=== PATIENT | female | born 1960 | race Caucasian/White ===

== ENCOUNTER → 2016-08-24 | Outpatient (CLI) | payer BC, OTHER ==
[2016-08-24 10:56] LABS: CHLORIDE,CL 100 mmol/L (98-110); SODIUM,NA 140 mmol/L (136-146)
== END ==
LOC: MW.CHFP 10:00
PROVIDERS: ATTEND Emergency Medicine
DX: I10 Essential (primary) hypertension (principal); R73.03 Prediabetes
CPT/HCPCS: 36415; 80053; 80061; 83036

== ENCOUNTER 2018-07-22 07:47 | Day surgery (SDC) | payer BC ==
[2018-07-22] MEDS ORDERED: Clindamycin Phosphate in D5W 600 MG in Premix Bag 1 BAG IV ONE ×2 (08:00)
[2018-07-22] MEDS ORDERED: Lactated Ringers 1,000 ML IV SCH (08:00)
[2018-07-22] MEDS ORDERED: Bupivacaine 0.25%/EPINEPHrine 1:200,000 10 ML SDV INJECT ONE (08:00)
--- NOTE | 2018-07-22 08:28 | PCM.PREANE ---
Preanesthetic Assessment - Anesthesia/Transfusion/Family Hx Anesthesia History: Prior Anesthesia Without Reaction Family History of Anesthesia Reaction: No Transfusion History: Prior Transfusion Without Reaction - Review of Systems General: No Symptoms Pulmonary: No Symptoms Cardiovascular: No Symptoms Gastrointestinal: No Symptoms Neurological: No Symptoms Other: Reports: None - Physical Assessment NPO Status Date: 07/21/18 O2 Sat by Pulse Oximetry: 97 Respiratory Rate: 16 Vital Signs: Last Vital Signs Temp 97.2 F 07/22/18 08:13 Pulse 75 07/22/18 08:13 Resp 16 07/22/18 08:13 BP 127/75 07/22/18 08:13 Pulse Ox 97 07/22/18 08:13 Height: 5 ft 5 in Weight: 65.317 kg ASA Class: 2 Mental Status: Alert & Oriented x3 Airway Class: Mallampati = 2 Dentition: Reports: Normal Dentition ROM/Head Extension: Full Lungs: Clear to Auscultation, Normal Respiratory Effort Cardiovascular: Regular Rate, Regular Rhythm - Allergies Allergies/Adverse Reactions: Allergies Allergy/AdvReac Type Severity Reaction Status Date / Time Penicillins Allergy Chest Pain Verified 07/19/18 11:35 - Blood Blood Available: No - Anesthesia Plan Pre-Op Medication Ordered: None - Acknowledgements Anesthesia Type Planned: MAC Pt an Appropriate Candidate for the Planned Anesthesia: Yes Alternatives and Risks of Anesthesia Discussed w Pt/Guardian: Yes Pt/Guardian Understands and Agrees with Anesthesia Plan: Yes Additional Comments: PMH: anx/dep, ptsd. 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: Musculoskeletal History: Reports: None Neurological History: Reports: Migraines, Other (See Below) Other Neuro History: hx of motion sickness, hx of migraines in the past- not recently Psychiatric History: Reports: Autism, Depression Endocrine/Metabolic History: Reports: Diabetes, Type II Hematologic History: Reports: Blood Transfusion(s) Immunologic History: Reports: None Oncologic (Cancer) History: Reports: None Dermatologic History: Reports: None - Past Surgical History Head Surgeries/Procedures: Reports: None HEENT Surgical History: Reports: None Cardiovascular Surgical History: Reports: None Respiratory Surgical History: Reports: None GI Surgical History: Reports: None Female Surgical History: Reports: Hysterectomy Endocrine Surgical History: Reports: None Neurological Surgical History: Reports: Laminectomy Musculoskeletal Surgical History: Reports: Arthroscopic Knee Other Musculoskeletal Surgeries/Procedures:: right knee minscus repair, right bunon surgery Oncologic Surgical History: Reports: None Dermatological Surgical History: Reports: None - SUBSTANCE USE Smoking Status *Q: Never Smoker Recreational Drug Use History: No - HOME MEDS Home Medications: Home Meds Ramipril [Altace] 10 mg PO DAILY 11/01/13 [History] hydroCHLOROthiazide [Hydrochlorothiazide] 12.5 mg PO DAILY 11/01/13 [History] Pantoprazole Sodium 40 mg PO DAILY 05/24/14 [History] metFORMIN [Glucophage XR] 500 mg PO BID 12/12/17 [History] Sertraline [Zoloft] 50 mg PO DAILY 07/19/18 [History] - CURRENT (IN HOUSE) MEDS Current Meds: Current Medications Lactated Ringer's (Ringers, Lactated) 1,000 mls @ 125 mls/hr IV ASDIRECTED VANESSA Last Admin: 07/22/18 08:18 Dose: 125 mls/hr Discontinued Medications Bupivacaine HCl/Epinephrine Bitart (Marcaine 0.25%/Epinephrine 1:200,000) 10 ml INJECT ONETIME ONE Stop: 07/22/18 08:01 Clindamycin Phosphate 600 mg/ (Premix) 50 mls @ 150 mls/hr IV ONETIME ONE Stop: 07/22/18 08:19
[2018-07-22] MEDS ORDERED: Bupivacaine 0.25%/EPINEPHrine 1:200,000 10 ML SDV ONE (09:13)
[2018-07-22] MEDS ORDERED: Propofol 200 MG/20 ML SDV ONE (09:30)
[2018-07-22] MEDS ORDERED: Lidocaine 2% 5 ML SDV ONE (09:30)
[2018-07-22] MEDS ORDERED: fentaNYL 100 MCG/2 ML SDV ONE (09:30)
[2018-07-22] MEDS ORDERED: Midazolam 1 MG/ML 2 ML SDV ONE (09:31)
[2018-07-22] MEDS ORDERED: Ondansetron 4 MG/2 ML SDV ONE (09:56)
[2018-07-22] MEDS ORDERED: Ketorolac 30 MG/ML SDV ONE (09:56)
[2018-07-22 11:25] VITALS: BP 125/77
--- NOTE | 2018-07-22 13:35 | PCM.POSTAN ---
POST ANESTHESIA ASSESSMENT - MENTAL STATUS Mental Status: Alert, Oriented - RESPIRATORY Respiratory Status: Respiratory Rate WNL, Airway Patent, O2 Saturation Stable - CARDIOVASCULAR CV Status: Pulse Rate WNL, Blood Pressure Stable - GASTROINTESTINAL GI Status: No Symptoms - POST OP HYDRATION Hydration Status: Adequate & Stable
--- NOTE | 2018-07-22 13:35 | PCM48HPAN ---
Post Anesthesia Note - EVALUATION WITHIN 48HRS OF ANESTHETIC Vital Signs in Normal Range: Yes Patient Participated in Evaluation: Yes Respiratory Function Stable: Yes Airway Patent: Yes Cardiovascular Function Stable: Yes Hydration Status Stable: Yes Pain Control Satisfactory: Yes Nausea and Vomiting Control Satisfactory: Yes Mental Status Recovered: Yes Resp Rate: 16
--- NOTE | 2018-07-23 06:33 | PCM.OPNOTE ---
- General Post-Op/Procedure Note Date of Surgery/Procedure: 07/22/18 Operative Procedure(s): excision of left volar wrist ganglion Pre Op Diagnosis: left volar wrist ganglion Post-Op Diagnosis: Same Anesthesia Technique: Local, MAC Primary Surgeon: Flaquita Arroyo Keypunch Operator: Jelly Russell Complications: None Condition: Good
--- NOTE | 2018-07-24 20:17 | OR ---
SURGEON: JANIS BAUMANN MD DATE OF PROCEDURE: 07/22/2018 PREOPERATIVE DIAGNOSIS: Left volar wrist ganglion. POSTOPERATIVE DIAGNOSIS: Left volar wrist ganglion. PROCEDURE: Excision of left volar wrist ganglion. DETENTION WORKER: LYNDSEY Piedra REASON FOR AND ROLE OF DETENTION WORKER: Retraction, prepping, draping, positioning and closure assistance. ANESTHESIA: Local MAC. INDICATIONS: Ms. Rogers is a 58-year-old female seen today in evaluation for left volar wrist ganglion. It does come and go, and it is currently today somewhat deflated. Risks and benefits of release were discussed, and she was in agreement to proceed. Risks were including but not limited to bleeding, infection, damage to underlying or overlying structures, possible need for future interventions, or possible scarring. PROCEDURE DETAILS: After informed consent was obtained and placed on the chart, the patient was brought to the operating theater and laid in supine position. After adequate MAC anesthesia was obtained, the area was prepped and draped, and a time-out was completed to confirm side and site. A 0.25% Marcaine with epinephrine was infiltrated into the area, and after adequate time for setting, the arm was exsanguinated and the tourniquet was insufflated to 200 mmHg. A longitudinal incision was made over the volar wrist ganglion, and dissection was carried circumferentially around it. It does appear to be coming from the flexor carpi radialis tendon itself. This was removed and sent for pathology. Cautery was used to cauterize the small hole appreciated in the area around the joint where the fcr passes. The small possible joint communication was closed using a 4-0 Monocryl stitch in a [id number] fashion. Meticulous hemostasis was obtained, and the tourniquet was desufflated at the end of the case. A running 4-0 Monocryl was used to close the skin. Once adequately closed, the wound was dressed with Steri-Strips, fluffs, and a short-arm thumb spica splint. The patient tolerated this well. All counts and needles were correct at the end of the case. The patient will see us in 2 weeks, sooner with any issues or concerns. HEGGTMASHA / XIN /[id number] [facility]
== END 2018-07-22 11:36 | disposition home or self-care (01) ==
LOC: MW.SDS 07:47
PROVIDERS: ATTEND Plastic Surgery
DX: M67.432 Ganglion, left wrist (principal); I10 Essential (primary) hypertension; E11.9 Type 2 diabetes mellitus without complications; E04.2 Nontoxic multinodular goiter; K21.9 Gastro-esophageal reflux disease without esophagitis; F32.9 Major depressive disorder, single episode, unspecified; F41.9 Anxiety disorder, unspecified; M17.11 Unilateral primary osteoarthritis, right knee; M70.31 Other bursitis of elbow, right elbow; Z88.0 Allergy status to penicillin; Z79.84 Long term (current) use of oral hypoglycemic drugs; Z79.899 Other long term (current) drug therapy
CPT/HCPCS: 25111; J1885; J2001; J2250; J2405; J2704; J3010; J3490; J7120; 88304

== ENCOUNTER 2019-01-21 14:46 | Inpatient (IN) | payer BC ==
[2019-01-21] MEDS ORDERED: Sodium Chloride 0.9% 1,000 ML IV ONE (14:49)
[2019-01-21] MEDS ORDERED: Midazolam 1 MG/ML 2 ML SDV IVPUSH ONE (15:01)
[2019-01-21] MEDS ORDERED: Morphine 2 MG/ML Syringe IVPUSH ONE (15:01)
[2019-01-21] MEDS ORDERED: Amiodarone In Dextrose,Iso-Osm 150 MG in Premix Bag 1 BAG IV ONE ×2 (15:02)
--- NOTE | 2019-01-21 15:44 | EDM.PDOC ---
ED HPI GENERAL MEDICAL PROBLEM - General Chief Complaint: Chest Pain Stated Complaint: CHEST PAINS Time Seen by Provider: 01/21/19 15:43 Source of Information: Reports: Patient - History of Present Illness INITIAL COMMENTS - FREE TEXT/NARRATIVE: HISTORY AND PHYSICAL: History of present illness: [Patient presents with wide complex tachycardia and mild 2 out of 10 chest pain hemodynamically stable and alert] Review of systems: As per history of present illness and below otherwise all systems reviewed and negative. Past medical history: As per history of present illness and as reviewed below otherwise noncontributory. Surgical history: As per history of present illness and as reviewed below otherwise noncontributory. Social history: No reported history of drug or alcohol abuse. Family history: As per history of present illness and as reviewed below otherwise noncontributory. Physical exam: HEENT: Atraumatic, normocephalic, pupils reactive, negative for conjunctival pallor or scleral icterus, mucous membranes moist, throat clear, neck supple, nontender, trachea midline. Lungs: Clear to auscultation, breath sounds equal bilaterally, chest nontender. Heart: S1S2, regular, negative for clicks, rubs, or JVD. Abdomen: Soft, nondistended, nontender. Negative for masses or hepatosplenomegaly. Negative for costovertebral tenderness. Pelvis: Stable nontender. Genitourinary: Deferred. Rectal: Deferred. Extremities: Atraumatic, negative for cords or calf pain. Neurovascular unremarkable. Neuro: Awake, alert, oriented. Cranial nerves II through XII unremarkable. Cerebellum unremarkable. Motor and sensory unremarkable throughout. Exam nonfocal. Diagnostics: [CBC CMP troponin UA drug screen EKG with repeat Post cardioversion Chest 1 view ] Therapeutics: [ amiodarone 150 mg IV cardioversion 100 J with conversion Morphine 2 mg IV Versed 2 mg IV Potassium 40 mEq IV K-Dur 20 milliequivalents by mouth ] Impression: Hypovolemia/dehydration Hypokalemia [ complex tachycardia ]resolved Definitive disposition and diagnosis as appropriate pending reevaluation and review of above. Chest Pain Score (Numeric/FACES): 7 - Related Data Allergies Allergy/AdvReac Type Severity Reaction Status Date / Time Penicillins Allergy Chest Pain Verified 01/21/19 14:51 Home Meds: Home Meds Ramipril [Altace] 10 mg PO DAILY 11/01/13 [History] hydroCHLOROthiazide [Hydrochlorothiazide] 12.5 mg PO DAILY 11/01/13 [History] Pantoprazole Sodium 40 mg PO DAILY 05/24/14 [History] metFORMIN [Glucophage XR] 500 mg PO BID 12/12/17 [History] Sertraline [Zoloft] 50 mg PO DAILY 07/19/18 [History] Past Medical History HEENT History: Reports: Other (See Below) Other HEENT History: wears glasses Cardiovascular History: Reports: Hypertension Respiratory History: Reports: None Gastrointestinal History: Reports: GERD Genitourinary History: Reports: None 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: Musculoskeletal History: Reports: None Neurological History: Reports: Migraines, Other (See Below) Other Neuro History: hx of motion sickness, hx of migraines in the past- not recently Psychiatric History: Reports: Autism, Depression Endocrine/Metabolic History: Reports: Diabetes, Type II Hematologic History: Reports: Blood Transfusion(s) Immunologic History: Reports: None Oncologic (Cancer) History: Reports: None Dermatologic History: Reports: None - Infectious Disease History Infectious Disease History: Reports: Chicken Pox, Measles - Past Surgical History Head Surgeries/Procedures: Reports: None HEENT Surgical History: Reports: None Cardiovascular Surgical History: Reports: None Respiratory Surgical History: Reports: None GI Surgical History: Reports: None Female Surgical History: Reports: Hysterectomy Endocrine Surgical History: Reports: None, Thyroid Biopsy Neurological Surgical History: Reports: Laminectomy Musculoskeletal Surgical History: Reports: Arthroscopic Knee Other Musculoskeletal Surgeries/Procedures:: right knee minscus repair, right bunon surgery Oncologic Surgical History: Reports: None Dermatological Surgical History: Reports: None Social & Family History - Family History Family Medical History: Noncontributory - Tobacco Use Smoking Status *Q: Never Smoker - Caffeine Use Caffeine Use: Reports: Coffee - Recreational Drug Use Recreational Drug Use: No ED ROS GENERAL - Review of Systems Review Of Systems: See Below ED EXAM, GENERAL - Physical Exam Exam: See Below Course - Vital Signs Last Recorded V/S: Last Vital Signs Temp 96.4 F 01/21/19 14:52 Pulse 104 H 01/21/19 15:56 Resp 17 01/21/19 15:56 BP 124/80 01/21/19 15:56 Pulse Ox 96 01/21/19 15:56 - Orders/Labs/Meds Orders: Active Orders 24 hr Category Date Time Status EKG 12 Lead [EKG Documentation Completion] [RC] STAT Care 01/21/19 15:21 Active EKG Documentation Completion [RC] STAT Care 01/21/19 14:49 Active UA RFX ABELARDO AND CULT IF INDIC [URIN] Stat Lab 01/21/19 16:09 Received Potassium Chloride Riders [KCL 40 MEQ in Water 100 ML] Med 01/21/19 16:03 Active 40 meq Premix Bag 1 bag IV ONETIME Sodium Chloride 0.9% [Normal Saline] 1,000 ml Med 01/21/19 16:15 Active IV STAT Medication Orders Potassium Chloride 40 meq/ (Premix) 100 mls @ 25 mls/hr IV ONETIME ONE Stop: 01/21/19 20:02 Last Admin: 01/21/19 16:27 Dose: 25 mls/hr Sodium Chloride (Normal Saline) 1,000 mls @ 125 mls/hr IV STAT VANESSA Last Admin: 01/21/19 16:27 Dose: 125 mls/hr Labs: Laboratory Tests 01/21/19 01/21/19 01/21/19 Range/Units 14:54 14:54 14:54 WBC 15.01 H (4.0-11.0) K/uL RBC 4.68 (4.30-5.90) M/uL Hgb 15.0 (12.0-16.0) g/dL Hct 45.3 (36.0-46.0) % MCV 96.8 (80.0-98.0) fL MCH 32.1 H (27.0-32.0) pg MCHC 33.1 (31.0-37.0) g/dL RDW Std Deviation 45.8 (28.0-62.0) fl RDW Coeff of Anders 13 (11.0-15.0) % Plt Count 402 H (150-400) K/uL MPV 10.20 (7.40-12.00) fL Neut % (Auto) 62.0 (48.0-80.0) % Lymph % (Auto) 27.3 (16.0-40.0) % [place] % (Auto) 8.2 (0.0-15.0) % Eos % (Auto) 2.2 (0.0-7.0) % Baso % (Auto) 0.3 (0.0-1.5) % Neut # (Auto) 9.3 H (1.4-5.7) K/uL Lymph # (Auto) 4.1 H (0.6-2.4) K/uL [place] # (Auto) 1.2 H (0.0-0.8) K/uL Eos # (Auto) 0.3 (0.0-0.7) K/uL Baso # (Auto) 0.0 (0.0-0.1) K/uL Nucleated RBC % 0.0 /100WBC Nucleated RBCs # 0 K/uL D-Dimer, Quantitative 0.30 (0.0-0.50) mg/L FEU Sodium 140 (136-145) mmol/L Potassium 2.9 L (3.5-5.1) mmol/L Chloride 99 (98-107) mmol/L Carbon Dioxide 26.6 (21.0-32.0) mmol/L BUN 18 (7.0-18.0) mg/dL Creatinine 1.2 H (0.6-1.0) mg/dL Est Cr Clr Drug Dosing 45.42 mL/min Estimated GFR (MDRD) 46.0 ml/min Glucose 124 H (74-106) mg/dL Calcium 10.2 H (8.5-10.1) mg/dL Total Bilirubin 0.5 (0.2-1.0) mg/dL AST 16 (15-37) IU/L ALT 16 (14-63) IU/L Alkaline Phosphatase 94 (46-116) U/L Troponin I < 0.050 (0.000-0.056) ng/mL Total Protein 8.6 H (6.4-8.2) g/dL Albumin 4.4 (3.4-5.0) g/dL Globulin 4.2 H (2.6-4.0) g/dL Albumin/Globulin Ratio 1.1 (0.9-1.6) Lipase 338 (73-393) U/L Meds: Medications Generic Name Dose Route Start Last Admin Trade Name Freq PRN Reason Stop Dose Admin Potassium Chloride 40 meq/ 100 mls @ 25 mls/hr 01/21/19 16:03 01/21/19 16:27 Premix IV 01/21/19 20:02 25 mls/hr ONETIME ONE Administration Sodium Chloride 1,000 mls @ 125 mls/hr 01/21/19 16:15 01/21/19 16:27 Normal Saline IV 125 mls/hr STAT VANESSA Administration Discontinued Medications Generic Name Dose Route Start Last Admin Trade Name Zakiya PRN Reason Stop Dose Admin Sodium Chloride 1,000 mls @ 999 mls/hr 01/21/19 14:49 01/21/19 15:05 Normal Saline IV 01/21/19 15:49 999 mls/hr STAT ONE Administration Amiodarone HCl/Dextrose Confirm 01/21/19 14:57 01/21/19 15:06 Nexterone In Dextrose 150 Mg/100 Ml Administered 01/21/19 14:58 Not Given Dose 100 mls @ as directed IV .STK-MED ONE Amiodarone HCl/Dextrose 150 mg 100 mls @ 400 mls/hr 01/21/19 15:02 01/21/19 15:05 / Premix IV 01/21/19 15:16 400 mls/hr NOW ONE Administration Protocol Midazolam HCl 2 mg 01/21/19 15:01 01/21/19 15:15 Versed 1 Mg/Ml IVPUSH 01/21/19 15:02 2 mg ONETIME ONE Administration Morphine Sulfate 2 mg 01/21/19 15:01 01/21/19 15:05 Morphine IVPUSH 01/21/19 15:02 2 mg ONETIME ONE Administration Potassium Chloride 20 meq 01/21/19 16:03 01/21/19 16:11 Klor-Con M20 PO 01/21/19 16:04 20 meq ONETIME ONE Administration Departure - Departure Time of Disposition: 17:30 Disposition: Refer to Observation Condition: Fair Clinical Impression: Wide-complex tachycardia, Dehydration, Hypokalemia - Discharge Information Referrals: PCP,None [Primary Care Provider] - Forms: ED Department Discharge - My Orders Last 24 Hours: My Active Orders 01/21/19 14:49 EKG Documentation Completion [RC] STAT 01/21/19 15:21 EKG 12 Lead [EKG Documentation Completion] [RC] STAT 01/21/19 16:03 Potassium Chloride Riders [KCL 40 MEQ in Water 100 ML] 40 meq Premix Bag 1 bag IV ONETIME 01/21/19 16:09 UA RFX ABELARDO AND CULT IF INDIC [URIN] Stat 01/21/19 16:15 Sodium Chloride 0.9% [Normal Saline] 1,000 ml IV STAT - Assessment/Plan Last 24 Hours: My Active Orders 01/21/19 14:49 EKG Documentation Completion [RC] STAT 01/21/19 15:21 EKG 12 Lead [EKG Documentation Completion] [RC] STAT 01/21/19 16:03 Potassium Chloride Riders [KCL 40 MEQ in Water 100 ML] 40 meq Premix Bag 1 bag IV ONETIME 01/21/19 16:09 UA RFX ABELARDO AND CULT IF INDIC [URIN] Stat 01/21/19 16:15 Sodium Chloride 0.9% [Normal Saline] 1,000 ml IV STAT
[2019-01-21 15:46] LABS: BLOOD UREA NITROGEN,BUN 18 mg/dL (7.0-18.0); CARBON DIOXIDE,CO2 26.6 mmol/L (21.0-32.0); CHLORIDE,CL 99 mmol/L (98-107); GLUCOSE RANDOM 124 mg/dL (74-106); LIPASE 338 U/L (73-393); POTASSIUM,K 2.9 mmol/L (3.5-5.1); SODIUM,NA 140 mmol/L (136-145)
--- NOTE | 2019-01-21 15:56 | CR ---
INDICATION: Chest pain; High blood pressure TECHNIQUE: Chest 1 view. COMPARISON: 02/11/12 FINDINGS: Cardiovascular and mediastinum: Heart size and vasculature are normal in caliber and appearance. Mediastinum is within normal limits. Lungs and pleural space: Lungs are clear. No sign of infiltrate or mass. No sign of pleural effusion. No pneumothorax. Bones and soft tissues: No significant findings. IMPRESSION: Unremarkable chest. Dictated by: Adan Leahy MD @ 01/21/2019 15:54:58 (Electronically Signed)
[2019-01-21] MEDS ORDERED: Potassium Chloride 20 MEQ Tab.ER PO ONE (16:03)
[2019-01-21] MEDS ORDERED: Potassium Chloride Riders 40 MEQ in Premix Bag 1 BAG IV ONE (16:03)
[2019-01-21] MEDS ORDERED: Sodium Chloride 0.9% 1,000 ML IV SCH ×2 (16:15→17:45)
[2019-01-21] MEDS ORDERED: Acetaminophen 325 MG Tab PO PRN (17:43)
[2019-01-21] MEDS ORDERED: Temazepam 15 MG Cap PO PRN (17:43)
[2019-01-21] MEDS ORDERED: oxyCODONE 5 MG Tab PO PRN (17:43)
[2019-01-21] MEDS ORDERED: Docusate Sodium 100 MG Cap PO PRN (17:43)
--- NOTE | 2019-01-21 18:00 | PCM.HP.2 ---
H&P History of Present Illness - General Date of Service: 01/21/19 Admit Problem/Dx: Admission Diagnosis/Problem Admission Diagnosis/Problem Wide-complex tachycardia Source of Information: Patient History Limitations: Reports: No Limitations - History of Present Illness Initial Comments - Free Text/Narative: The patient is an otherwise healthy 58-year-old lady who had presented to the emergency department with a complaint of chest pain, dizziness and lightheadedness along with shortness of breath. The patient had an EKG obtained which showed extreme tachycardia with wide complex with a ventricular rate of 202 bpm. The patient had been cardioverted in the emergency room with 100 J of electrical energy and she had been started on amiodarone. The patient has denied any previous episode. She has been taking medication for hypertension and well controlled diabetes. The patient reports that she was moving lightweight furniture when she started to get dizzy and lightheaded and she felt that her heart was coming out of her chest. The patient said that she had bandlike pain going from her right shoulder to her left lower chest area. The patient does feel better currently and is having no pain. Postconversion the patient's EKG shows sinus tachycardia with a ventricular rate of 102 bpm. Onset of Symptoms: Reports: Sudden Duration of Symptoms: Reports: Hour(s):, Improving Location: Reports: Chest Quality: Reports: Dull, Pressure Severity: Moderate Improves with: Reports: Other (Cardioversion) Worsens with: Reports: None Associated Symptoms: Reports: Diaphoresis, Shortness of Breath Chest Pain Score (Numeric/FACES): 7 - Related Data Allergies/Adverse Reactions: Allergies Allergy/AdvReac Type Severity Reaction Status Date / Time Penicillins Allergy Chest Pain Verified 01/21/19 14:51 Home Medications: Home Meds Ramipril [Altace] 10 mg PO DAILY 11/01/13 [History] hydroCHLOROthiazide [Hydrochlorothiazide] 12.5 mg PO DAILY 11/01/13 [History] Pantoprazole Sodium 40 mg PO DAILY 05/24/14 [History] metFORMIN [Glucophage XR] 500 mg PO BID 12/12/17 [History] Sertraline [Zoloft] 50 mg PO DAILY 07/19/18 [History] Past Medical History HEENT History: Reports: Other (See Below) Other HEENT History: wears glasses Cardiovascular History: Reports: Hypertension Respiratory History: Reports: None Gastrointestinal History: Reports: GERD Genitourinary History: Reports: None 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: Musculoskeletal History: Reports: None Neurological History: Reports: Migraines, Other (See Below) Other Neuro History: hx of motion sickness, hx of migraines in the past- not recently Psychiatric History: Reports: Autism, Depression Endocrine/Metabolic History: Reports: Diabetes, Type II Hematologic History: Reports: Blood Transfusion(s) Immunologic History: Reports: None Oncologic (Cancer) History: Reports: None Dermatologic History: Reports: None - Infectious Disease History Infectious Disease History: Reports: Chicken Pox, Measles - Past Surgical History Head Surgeries/Procedures: Reports: None HEENT Surgical History: Reports: None Cardiovascular Surgical History: Reports: None Respiratory Surgical History: Reports: None GI Surgical History: Reports: None Female Surgical History: Reports: Hysterectomy Endocrine Surgical History: Reports: None, Thyroid Biopsy Neurological Surgical History: Reports: Laminectomy Musculoskeletal Surgical History: Reports: Arthroscopic Knee Other Musculoskeletal Surgeries/Procedures:: right knee minscus repair, right bunon surgery Oncologic Surgical History: Reports: None Dermatological Surgical History: Reports: None Social & Family History - Family History Family Medical History: Noncontributory - Tobacco Use Smoking Status *Q: Never Smoker - Caffeine Use Caffeine Use: Reports: Coffee - Recreational Drug Use Recreational Drug Use: No - Living Situation & Occupation Living situation: Reports: , with Spouse Occupation: Retired H&P Review of Systems - Review of Systems: Review Of Systems: See Below General: Reports: Diaphoresis HEENT: Reports: No Symptoms Pulmonary: Reports: Shortness of Breath Cardiovascular: Reports: Chest Pain, Palpitations Gastrointestinal: Reports: No Symptoms Genitourinary: Reports: No Symptoms Musculoskeletal: Reports: No Symptoms Skin: Reports: No Symptoms Psychiatric: Reports: No Symptoms Neurological: Reports: No Symptoms Hematologic/Lymphatic: Reports: No Symptoms Immunologic: Reports: No Symptoms Exam - Exam Exam: See Below - Vital Signs Vital Signs: Last Vital Signs Temp 35.8 C 01/21/19 14:52 Pulse 103 H 01/21/19 17:27 Resp 17 01/21/19 17:27 BP 128/88 01/21/19 17:27 Pulse Ox 97 01/21/19 17:27 Weight: 64.864 kg - Exam Quality Assessment: Supplemental Oxygen General: Alert, Oriented, Cooperative, Mild Distress HEENT: Conjunctiva Clear, EACs Clear, EOMI, Hearing Intact, Pupils Equal, PERRLA. No: Mucosa Moist & [place] (Oropharynx dry) Neck: Supple, Trachea Midline Lungs: Clear to Auscultation, Normal Respiratory Effort Cardiovascular: Regular Rhythm, Tachycardia (100 bpm). No: Systolic Murmur, Diastolic Murmur, Rubs, Gallop/S3, Gallop/S4 GI/Abdominal Exam: Normal Bowel Sounds, Soft, No Distention Back Exam: Normal Inspection, Full Range of Motion Extremities: Normal Inspection, No Pedal Edema Skin: Warm, Dry, Intact Neurological: Cranial Nerves Intact Neuro Extensive - Mental Status: Alert, Oriented x3 Neuro Extensive - Motor, Sensory, Reflexes: CN II-XII Intact Psychiatric: Alert, Normal Affect, Normal Mood - Patient Data Lab Results Last 24 hrs: Laboratory Results - last 24 hr 01/21/19 01/21/19 01/21/19 Range/Units 14:54 14:54 14:54 WBC 15.01 H (4.0-11.0) K/uL RBC 4.68 (4.30-5.90) M/uL Hgb 15.0 (12.0-16.0) g/dL Hct 45.3 (36.0-46.0) % MCV 96.8 (80.0-98.0) fL MCH 32.1 H (27.0-32.0) pg MCHC 33.1 (31.0-37.0) g/dL RDW Std Deviation 45.8 (28.0-62.0) fl RDW Coeff of Anders 13 (11.0-15.0) % Plt Count 402 H (150-400) K/uL MPV 10.20 (7.40-12.00) fL Neut % (Auto) 62.0 (48.0-80.0) % Lymph % (Auto) 27.3 (16.0-40.0) % Perry % (Auto) 8.2 (0.0-15.0) % Eos % (Auto) 2.2 (0.0-7.0) % Baso % (Auto) 0.3 (0.0-1.5) % Neut # (Auto) 9.3 H (1.4-5.7) K/uL Lymph # (Auto) 4.1 H (0.6-2.4) K/uL Perry # (Auto) 1.2 H (0.0-0.8) K/uL Eos # (Auto) 0.3 (0.0-0.7) K/uL Baso # (Auto) 0.0 (0.0-0.1) K/uL Nucleated RBC % 0.0 /100WBC Nucleated RBCs # 0 K/uL D-Dimer, Quantitative 0.30 (0.0-0.50) mg/L FEU Sodium 140 (136-145) mmol/L Potassium 2.9 L (3.5-5.1) mmol/L Chloride 99 (98-107) mmol/L Carbon Dioxide 26.6 (21.0-32.0) mmol/L BUN 18 (7.0-18.0) mg/dL Creatinine 1.2 H (0.6-1.0) mg/dL Est Cr Clr Drug Dosing 45.42 mL/min Estimated GFR (MDRD) 46.0 ml/min Glucose 124 H (74-106) mg/dL Calcium 10.2 H (8.5-10.1) mg/dL Total Bilirubin 0.5 (0.2-1.0) mg/dL AST 16 (15-37) IU/L ALT 16 (14-63) IU/L Alkaline Phosphatase 94 (46-116) U/L Troponin I < 0.050 (0.000-0.056) ng/mL Total Protein 8.6 H (6.4-8.2) g/dL Albumin 4.4 (3.4-5.0) g/dL Globulin 4.2 H (2.6-4.0) g/dL Albumin/Globulin Ratio 1.1 (0.9-1.6) Lipase 338 (73-393) U/L Urine Color Urine Appearance Urine pH (5.0-8.0) Ur Specific [place] (1.001-1.035) Urine Protein (NEGATIVE) mg/dL Urine Glucose (UA) (NEGATIVE) mg/dL Urine Ketones (NEGATIVE) mg/dL Urine Occult Blood (NEGATIVE) Urine Nitrite (NEGATIVE) Urine Bilirubin (NEGATIVE) Urine Urobilinogen (<2.0) EU/dL Ur Leukocyte Esterase (NEGATIVE) 01/21/19 Range/Units 16:09 WBC (4.0-11.0) K/uL RBC (4.30-5.90) M/uL Hgb (12.0-16.0) g/dL Hct (36.0-46.0) % MCV (80.0-98.0) fL MCH (27.0-32.0) pg MCHC (31.0-37.0) g/dL RDW Std Deviation (28.0-62.0) fl RDW Coeff of Anders (11.0-15.0) % Plt Count (150-400) K/uL MPV (7.40-12.00) fL Neut % (Auto) (48.0-80.0) % Lymph % (Auto) (16.0-40.0) % Perry % (Auto) (0.0-15.0) % Eos % (Auto) (0.0-7.0) % Baso % (Auto) (0.0-1.5) % Neut # (Auto) (1.4-5.7) K/uL Lymph # (Auto) (0.6-2.4) K/uL Perry # (Auto) (0.0-0.8) K/uL Eos # (Auto) (0.0-0.7) K/uL Baso # (Auto) (0.0-0.1) K/uL Nucleated RBC % /100WBC Nucleated RBCs # K/uL D-Dimer, Quantitative (0.0-0.50) mg/L FEU Sodium (136-145) mmol/L Potassium (3.5-5.1) mmol/L Chloride (98-107) mmol/L Carbon Dioxide (21.0-32.0) mmol/L BUN (7.0-18.0) mg/dL Creatinine (0.6-1.0) mg/dL Est Cr Clr Drug Dosing mL/min Estimated GFR (MDRD) ml/min Glucose (74-106) mg/dL Calcium (8.5-10.1) mg/dL Total Bilirubin (0.2-1.0) mg/dL AST (15-37) IU/L ALT (14-63) IU/L Alkaline Phosphatase (46-116) U/L Troponin I (0.000-0.056) ng/mL Total Protein (6.4-8.2) g/dL Albumin (3.4-5.0) g/dL Globulin (2.6-4.0) g/dL Albumin/Globulin Ratio (0.9-1.6) Lipase (73-393) U/L Urine Color YELLOW Urine Appearance CLEAR Urine pH 5.0 (5.0-8.0) Ur Specific [place] 1.015 (1.001-1.035) Urine Protein NEGATIVE (NEGATIVE) mg/dL Urine Glucose (UA) NEGATIVE (NEGATIVE) mg/dL Urine Ketones TRACE H (NEGATIVE) mg/dL Urine Occult Blood NEGATIVE (NEGATIVE) Urine Nitrite NEGATIVE (NEGATIVE) Urine Bilirubin NEGATIVE (NEGATIVE) Urine Urobilinogen 0.2 (<2.0) EU/dL Ur Leukocyte Esterase TRACE H (NEGATIVE) Result Diagrams: 01/21/19 14:54 01/21/19 14:54 EKG INTERPRETATION EKG Date: 01/21/19 Time: 14:52 Rate (Beats/Min): 202 (Pre-conversion) - Problem List (1) Wide-complex tachycardia SNOMED Code(s): 170076796 ICD Code: I47.2 - VENTRICULAR TACHYCARDIA Status: Acute Priority: High Current Visit: Yes Problem Details: Wide-complex (2) Dehydration SNOMED Code(s): 29658943 ICD Code: E86.0 - DEHYDRATION Status: Acute Priority: High Current Visit: Yes (3) Diabetes mellitus type 2 in nonobese SNOMED Code(s): 543028795 ICD Code: E11.9 - TYPE 2 DIABETES MELLITUS WITHOUT COMPLICATIONS Status: Chronic Priority: High Current Visit: Yes (4) Hypertension SNOMED Code(s): 38151225 ICD Code: I10 - ESSENTIAL (PRIMARY) HYPERTENSION Status: Chronic Priority : High Current Visit: Yes Qualifiers: Hypertension type: essential hypertension Qualified Code(s): I10 - Essential (primary) hypertension (5) Hypokalemia SNOMED Code(s): 60072219 ICD Code: E87.6 - HYPOKALEMIA Status: Acute Priority: High Current Visit: Yes (6) Prolonged Q-T interval on ECG SNOMED Code(s): 351065549 ICD Code: R94.31 - ABNORMAL ELECTROCARDIOGRAM [ECG] [EKG] Status: Acute Priority: High Current Visit: Yes Problem List Initiated/Reviewed/Updated: Yes Orders Last 24hrs: Active Orders 24 hr Category Date Time Status Admission Status [Patient Status] [ADT] Stat ADT 01/21/19 17:37 Active Blood Glucose Check, Bedside [RC] TIDMEALS Care 01/21/19 17:43 Active Cardiac Monitoring [RC] CONTINUOUS Care 01/21/19 17:46 Active Diabetes Education [RC] Click to Edit Care 01/21/19 17:47 Active EKG 12 Lead [EKG Documentation Completion] [RC] STAT Care 01/21/19 15:21 Active EKG Documentation Completion [RC] STAT Care 01/21/19 14:49 Active Oxygen Therapy [RC] PRN Care 01/21/19 17:44 Active Up With Assistance [RC] ASDIRECTED Care 01/21/19 17:43 Active VTE/DVT Education [RC] PER UNIT ROUTINE Care 01/21/19 17:44 Active Vital Signs [RC] Q4H Care 01/21/19 17:44 Active [employer] Diet [DIET] Diet 01/22/19 Breakfast Active CBC WITH AUTO DIFF [HEME] AM Lab 01/22/19 05:11 Ordered COMPREHENSIVE METABOLIC PN,CMP [CHEM] AM Lab 01/22/19 05:11 Ordered CULTURE URINE [RM] Stat Lab 01/21/19 16:09 Received MAGNESIUM [CHEM] Routine Lab 01/21/19 17:43 Ordered UA W/MICROSCOPIC [URIN] Stat Lab 01/21/19 16:09 Results Acetaminophen [Tylenol] Med 01/21/19 17:43 Ordered 650 mg PO Q4H PRN Amiodarone In Dextrose,Iso-Osm [Nexterone in Dextrose Med 01/21/19 17:45 Active 360 MG/200 ML] 360 mg in 200 ml IV ASDIRECTED Amiodarone In Dextrose,Iso-Osm [Nexterone in Dextrose Med 01/21/19 17:45 Ordered 360 MG/200 ML] 360 mg in 200 ml IV ASDIRECTED Docusate Sodium [Colace] Med 01/21/19 17:43 Ordered 100 mg PO BID PRN Heparin Sodium Med 01/21/19 17:45 Ordered 5,000 units SUBCUT Q8H Insulin Aspart [NovoLOG] Med 01/22/19 07:30 Ordered See Protocol SUBCUT TIDAC Pantoprazole [ProTONIX] Med 01/22/19 09:00 Ordered 40 mg PO DAILY Potassium Bicarbonate [Klor-Con EF] Med 01/22/19 09:00 Ordered 25 meq PO DAILY Potassium Chloride Riders [KCL 40 MEQ in Water 100 ML] Med 01/21/19 16:03 Active 40 meq Premix Bag 1 bag IV ONETIME Ramipril [Altace] Med 01/22/19 09:00 Ordered 10 mg PO DAILY Sertraline [Zoloft] Med 01/22/19 09:00 Ordered 50 mg PO DAILY Sodium Chloride 0.9% [Normal Saline] 1,000 ml Med 01/21/19 17:45 Ordered IV ASDIRECTED Sodium Chloride 0.9% [Normal Saline] 1,000 ml Med 01/21/19 16:15 Active IV STAT Temazepam [Restoril] Med 01/21/19 17:43 Ordered 15 mg PO BEDTIME PRN hydroCHLOROthiazide Med 01/22/19 09:00 Ordered 12.5 mg PO DAILY metFORMIN [Glucophage XR] Med 01/21/19 21:00 Ordered 500 mg PO BID oxyCODONE Med 01/21/19 17:43 Ordered 5 mg PO Q4H PRN Glucose Management Sub Q Reflex [OM.PC] Click To Edit Oth 01/21/19 17:43 Ordered Resuscitation Status Routine Resus Stat 01/21/19 17:43 Ordered Medication Orders Acetaminophen (Tylenol) 650 mg PO Q4H PRN PRN Reason: Pain (Mild 1-3)/fever Docusate Sodium (Colace) 100 mg PO BID PRN PRN Reason: Constipation Heparin Sodium (Porcine) (Heparin Sodium) 5,000 units SUBCUT Q8H VANESSA Hydrochlorothiazide (Hydrochlorothiazide) 12.5 mg PO DAILY VANESSA Potassium Chloride 40 meq/ (Premix) 100 mls @ 25 mls/hr IV ONETIME ONE Stop: 01/21/19 20:02 Last Admin: 01/21/19 16:27 Dose: 25 mls/hr Sodium Chloride (Normal Saline) 1,000 mls @ 125 mls/hr IV STAT VANESSA Last Admin: 01/21/19 16:27 Dose: 125 mls/hr Amiodarone HCl/Dextrose (Nexterone In Dextrose 360 Mg/200 Ml) 360 mg in 200 mls @ 33.333 mls/hr IV ASDIRECTED VANESSA; Protocol Amiodarone HCl/Dextrose (Nexterone In Dextrose 360 Mg/200 Ml) 360 mg in 200 mls @ 33.333 mls/hr IV ASDIRECTED VANESSA; Protocol Sodium Chloride (Normal Saline) 1,000 mls @ 125 mls/hr IV ASDIRECTED VANESSA Insulin Aspart (Novolog) 0 unit SUBCUT TIDAC VANESSA; Protocol Metformin HCl (Glucophage Xr) 500 mg PO BID VANESSA Oxycodone HCl (Oxycodone) 5 mg PO Q4H PRN PRN Reason: Pain (moderate 4-6) Pantoprazole Sodium (Protonix) 40 mg PO DAILY VANESSA Potassium Bicarbonate (Klor-Con Ef) 25 meq PO DAILY VANESSA Ramipril (Altace) 10 mg PO DAILY VANESSA Sertraline HCl (Zoloft) 50 mg PO DAILY VANESSA Temazepam (Restoril) 15 mg PO BEDTIME PRN PRN Reason: Sleep Assessment/Plan Comment:: The patient is an otherwise healthy 58-year-old lady who had presented to the emergency department essentially hemodynamically unstable. The patient had been converted in the emergency department with the use of electricity. She had been given 100 J shock. The patient is currently in normal sinus rhythm with what appears to be prolonged QT barrier. Her wide-complex tachycardia does not resemble torsades. Magnesium levels have been ordered. The patient will be admitted to intensive care unit as an inpatient for close monitoring. The laboratory studies have been ordered. The patient's potassium was noted to be at 2.9 mmol per liter and this is been replaced within the emergency department and starting tomorrow with oral potassium. The patient will also be hydrated with normal saline at 125 mL per hour. The patient will also have DVT prophylaxis with the use of heparin. 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 This will be monitored with repeat laboratory studies. The patient will also be kept on glucose monitoring before meals with meals as well as low-dose sliding scale insulin. The patient has been encouraged to ambulate with assistance. - Mortality Measure Prognosis:: Good
[2019-01-21] MEDS: Heparin Sodium 5,000 Units/ML Vial SUBCUT SCH ×2 (18:41→19:45)
[2019-01-21] MEDS ORDERED: Heparin Sod,Pork In 0.45% Nacl 25,000 UNIT/500 ML IV.SOLN IV SCH (18:45)
[2019-01-21] MEDS ORDERED: Aspirin 325 MG Tab PO ONE (18:56)
[2019-01-21] MEDS ORDERED: Heparin Sodium 5,000 Units/ML Vial IV ONE (19:00)
--- NOTE | 2019-01-21 19:17 | PCM.DCSUM1 ---
Discharge Summary - Hospital Course HPI Initial Comments: Admitted secondary to wide-complex tachycardia. Diagnosis: Stroke: No - Discharge Data Discharge Date: 01/21/19 Discharge Disposition: DC/Tfer to Acute Hospital 02 Condition: Stable - Referral to Home Health Primary Care Physician: PCP None - Discharge Diagnosis/Problem(s) (1) Wide-complex tachycardia SNOMED Code(s): 724305618 ICD Code: I47.2 - VENTRICULAR TACHYCARDIA Status: Acute Priority: High Current Visit: Yes Problem Details: Wide-complex (2) Dehydration SNOMED Code(s): 45421947 ICD Code: E86.0 - DEHYDRATION Status: Acute Priority: High Current Visit: Yes (3) Diabetes mellitus type 2 in nonobese SNOMED Code(s): 605396081 ICD Code: E11.9 - TYPE 2 DIABETES MELLITUS WITHOUT COMPLICATIONS Status: Chronic Priority: High Current Visit: Yes (4) Hypertension SNOMED Code(s): 79061184 ICD Code: I10 - ESSENTIAL (PRIMARY) HYPERTENSION Status: Chronic Priority : High Current Visit: Yes Qualifiers: Hypertension type: essential hypertension Qualified Code(s): I10 - Essential (primary) hypertension (5) Hypokalemia SNOMED Code(s): 26645913 ICD Code: E87.6 - HYPOKALEMIA Status: Acute Priority: High Current Visit: Yes (6) Prolonged Q-T interval on ECG SNOMED Code(s): 646786399 ICD Code: R94.31 - ABNORMAL ELECTROCARDIOGRAM [ECG] [EKG] Status: Acute Priority: High Current Visit: Yes - Patient Summary/Data Hospital Course: The patient is a 58-year-old lady who had been admitted to the emergency department with complaint of chest pain and dizziness and lightheadedness and shortness of breath. She had an EKG which showed 202 bpm. She had been electrically converted in the emergency department. The patient's heart rate has increased slowly even with the use of amiodarone and there is concern for ischemia. The patient also has a history of hypertension and diabetes mellitus type 2. EICU physician had recommended that the patient undergo heart catheterization and as a result of this recommendation as well as change in her telemetry. The patient's magnesium was normal. She did have prolonged QT interval of 512 ms. I had a discussion with ER physician Dr. Boateng and he has agreed to accept. Patient will be transferred to [facility] currently in stable condition. She is to continue with the amiodarone drip and she also has been started on IV heparin dosing per protocol and has been given antiplatelet therapy with aspirin. - Patient Instructions Diet: NPO - Discharge Plan *PRESCRIPTION DRUG MONITORING PROGRAM REVIEWED*: No *COPY OF PRESCRIPTION DRUG MONITORING REPORT IN PATIENT RENY: No Home Medications: Home Meds Ramipril [Altace] 10 mg PO DAILY 11/01/13 [History] hydroCHLOROthiazide [Hydrochlorothiazide] 12.5 mg PO DAILY 11/01/13 [History] Pantoprazole Sodium 40 mg PO DAILY 05/24/14 [History] metFORMIN [Glucophage XR] 500 mg PO BID 12/12/17 [History] Sertraline [Zoloft] 50 mg PO DAILY 07/19/18 [History] Aspirin 325 mg PO DAILY tablet 01/21/19 [Rx] Oxygen Therapy Mode: Room Air Forms: ED Department Discharge Referrals: PCP,None [Primary Care Provider] - - Discharge Summary/Plan Comment DC Time >30 min.: Yes - General Info Date of Service: 01/21/19 Admission Dx/Problem (Free Text: Admission Diagnosis/Problem Admission Diagnosis/Problem Wide-complex tachycardia Functional Status: Reports: Pain Controlled - Review of Systems General: Reports: No Symptoms HEENT: Reports: No Symptoms Pulmonary: Reports: Shortness of Breath Cardiovascular: Reports: No Symptoms Gastrointestinal: Reports: No Symptoms Genitourinary: Reports: No Symptoms Musculoskeletal: Reports: No Symptoms Skin: Reports: No Symptoms Neurological: Reports: No Symptoms Psychiatric: Reports: No Symptoms - Patient Data Vitals - Most Recent: Last Vital Signs Temp 35.8 C 01/21/19 14:52 Pulse 103 H 01/21/19 17:27 Resp 17 01/21/19 17:27 BP 128/88 01/21/19 17:27 Pulse Ox 97 01/21/19 17:27 Weight - Most Recent: 64.864 kg Lab Results - Last 24 hrs: Laboratory Results - last 24 hr 01/21/19 01/21/19 01/21/19 Range/Units 14:54 14:54 14:54 WBC 15.01 H (4.0-11.0) K/uL RBC 4.68 (4.30-5.90) M/uL Hgb 15.0 (12.0-16.0) g/dL Hct 45.3 (36.0-46.0) % MCV 96.8 (80.0-98.0) fL MCH 32.1 H (27.0-32.0) pg MCHC 33.1 (31.0-37.0) g/dL RDW Std Deviation 45.8 (28.0-62.0) fl RDW Coeff of Anders 13 (11.0-15.0) % Plt Count 402 H (150-400) K/uL MPV 10.20 (7.40-12.00) fL Neut % (Auto) 62.0 (48.0-80.0) % Lymph % (Auto) 27.3 (16.0-40.0) % [place] % (Auto) 8.2 (0.0-15.0) % Eos % (Auto) 2.2 (0.0-7.0) % Baso % (Auto) 0.3 (0.0-1.5) % Neut # (Auto) 9.3 H (1.4-5.7) K/uL Lymph # (Auto) 4.1 H (0.6-2.4) K/uL [place] # (Auto) 1.2 H (0.0-0.8) K/uL Eos # (Auto) 0.3 (0.0-0.7) K/uL Baso # (Auto) 0.0 (0.0-0.1) K/uL Nucleated RBC % 0.0 /100WBC Nucleated RBCs # 0 K/uL D-Dimer, Quantitative 0.30 (0.0-0.50) mg/L FEU Sodium 140 (136-145) mmol/L Potassium 2.9 L (3.5-5.1) mmol/L Chloride 99 (98-107) mmol/L Carbon Dioxide 26.6 (21.0-32.0) mmol/L BUN 18 (7.0-18.0) mg/dL Creatinine 1.2 H (0.6-1.0) mg/dL Est Cr Clr Drug Dosing 45.42 mL/min Estimated GFR (MDRD) 46.0 ml/min Glucose 124 H (74-106) mg/dL Calcium 10.2 H (8.5-10.1) mg/dL Magnesium (1.8-2.4) mg/dL Total Bilirubin 0.5 (0.2-1.0) mg/dL AST 16 (15-37) IU/L ALT 16 (14-63) IU/L Alkaline Phosphatase 94 (46-116) U/L Troponin I < 0.050 (0.000-0.056) ng/mL Total Protein 8.6 H (6.4-8.2) g/dL Albumin 4.4 (3.4-5.0) g/dL Globulin 4.2 H (2.6-4.0) g/dL Albumin/Globulin Ratio 1.1 (0.9-1.6) Lipase 338 (73-393) U/L Urine Color Urine Appearance Urine pH (5.0-8.0) Ur Specific Tyler (1.001-1.035) Urine Protein (NEGATIVE) mg/dL Urine Glucose (UA) (NEGATIVE) mg/dL Urine Ketones (NEGATIVE) mg/dL Urine Occult Blood (NEGATIVE) Urine Nitrite (NEGATIVE) Urine Bilirubin (NEGATIVE) Urine Urobilinogen (<2.0) EU/dL Ur Leukocyte Esterase (NEGATIVE) Urine RBC (0-2/HPF) Urine WBC (0-5/HPF) Ur Epithelial Cells (NONE-FEW) Urine Bacteria (NEGATIVE) Hyaline Casts (0-2/LPF) 01/21/19 01/21/19 Range/Units 14:54 16:09 WBC (4.0-11.0) K/uL RBC (4.30-5.90) M/uL Hgb (12.0-16.0) g/dL Hct (36.0-46.0) % MCV (80.0-98.0) fL MCH (27.0-32.0) pg MCHC (31.0-37.0) g/dL RDW Std Deviation (28.0-62.0) fl RDW Coeff of Anders (11.0-15.0) % Plt Count (150-400) K/uL MPV (7.40-12.00) fL Neut % (Auto) (48.0-80.0) % Lymph % (Auto) (16.0-40.0) % [place] % (Auto) (0.0-15.0) % Eos % (Auto) (0.0-7.0) % Baso % (Auto) (0.0-1.5) % Neut # (Auto) (1.4-5.7) K/uL Lymph # (Auto) (0.6-2.4) K/uL [place] # (Auto) (0.0-0.8) K/uL Eos # (Auto) (0.0-0.7) K/uL Baso # (Auto) (0.0-0.1) K/uL Nucleated RBC % /100WBC Nucleated RBCs # K/uL D-Dimer, Quantitative (0.0-0.50) mg/L FEU Sodium (136-145) mmol/L Potassium (3.5-5.1) mmol/L Chloride (98-107) mmol/L Carbon Dioxide (21.0-32.0) mmol/L BUN (7.0-18.0) mg/dL Creatinine (0.6-1.0) mg/dL Est Cr Clr Drug Dosing mL/min Estimated GFR (MDRD) ml/min Glucose (74-106) mg/dL Calcium (8.5-10.1) mg/dL Magnesium 1.8 (1.8-2.4) mg/dL Total Bilirubin (0.2-1.0) mg/dL AST (15-37) IU/L ALT (14-63) IU/L Alkaline Phosphatase (46-116) U/L Troponin I (0.000-0.056) ng/mL Total Protein (6.4-8.2) g/dL Albumin (3.4-5.0) g/dL Globulin (2.6-4.0) g/dL Albumin/Globulin Ratio (0.9-1.6) Lipase (73-393) U/L Urine Color YELLOW Urine Appearance CLEAR Urine pH 5.0 (5.0-8.0) Ur Specific Tyler 1.015 (1.001-1.035) Urine Protein NEGATIVE (NEGATIVE) mg/dL Urine Glucose (UA) NEGATIVE (NEGATIVE) mg/dL Urine Ketones TRACE H (NEGATIVE) mg/dL Urine Occult Blood NEGATIVE (NEGATIVE) Urine Nitrite NEGATIVE (NEGATIVE) Urine Bilirubin NEGATIVE (NEGATIVE) Urine Urobilinogen 0.2 (<2.0) EU/dL Ur Leukocyte Esterase TRACE H (NEGATIVE) Urine RBC 0-1 (0-2/HPF) Urine WBC 0-2 (0-5/HPF) Ur Epithelial Cells RARE (NONE-FEW) Urine Bacteria RARE (NEGATIVE) Hyaline Casts 0-2 (0-2/LPF) Med Orders - Current: Current Medications Acetaminophen (Tylenol) 650 mg PO Q4H PRN PRN Reason: Pain (Mild 1-3)/fever Aspirin (Aspirin) 325 mg PO DAILY [facility] Docusate Sodium (Colace) 100 mg PO BID PRN PRN Reason: Constipation Hydrochlorothiazide (Hydrochlorothiazide) 12.5 mg PO DAILY [facility] Potassium Chloride 40 meq/ (Premix) 100 mls @ 25 mls/hr IV ONETIME ONE Stop: 01/21/19 20:02 Last Admin: 01/21/19 16:27 Dose: 25 mls/hr Sodium Chloride (Normal Saline) 1,000 mls @ 125 mls/hr IV STAT VANESSA Last Admin: 01/21/19 16:27 Dose: 125 mls/hr Amiodarone HCl/Dextrose (Nexterone In Dextrose 360 Mg/200 Ml) 360 mg in 200 mls @ 33.333 mls/hr IV ASDIRECTED VANESSA; Protocol Last Admin: 01/21/19 18:00 Dose: 1 mg/min, 33.333 mls/hr Sodium Chloride (Normal Saline) 1,000 mls @ 125 mls/hr IV ASDIRECTED VANESSA Heparin Sodium/Sodium Chloride (Heparin-1/2ns 25,000 Units/500) 25,000 unit in 500 mls @ 15.567 mls/hr IV TITRATE VANESSA; Protocol Insulin Aspart (Novolog) 0 unit SUBCUT TIDAC VANESSA; Protocol Metformin HCl (Glucophage Xr) 500 mg PO BID [facility] Oxycodone HCl (Oxycodone) 5 mg PO Q4H PRN PRN Reason: Pain (moderate 4-6) Pantoprazole Sodium (Protonix) 40 mg PO DAILY [facility] Potassium Bicarbonate (Klor-Con Ef) 25 meq PO DAILY [facility] Ramipril (Altace) 10 mg PO DAILY [facility] Sertraline HCl (Zoloft) 50 mg PO DAILY [facility] Temazepam (Restoril) 15 mg PO BEDTIME PRN PRN Reason: Sleep Discontinued Medications Aspirin (Aspirin) 325 mg PO ONETIME ONE Stop: 01/21/19 18:57 Last Admin: 01/21/19 19:11 Dose: 325 mg Heparin Sodium (Porcine) (Heparin Sodium) 5,000 units SUBCUT Q8H VANESSA Last Admin: 01/21/19 18:41 Dose: 5,000 units Heparin Sodium (Porcine) (Heparin Sodium) 3,900 units IV ONETIME ONE Stop: 01/21/19 19:01 Last Admin: 01/21/19 19:12 Dose: 3,900 units Sodium Chloride (Normal Saline) 1,000 mls @ 999 mls/hr IV STAT ONE Stop: 01/21/19 15:49 Last Admin: 01/21/19 15:05 Dose: 999 mls/hr Amiodarone HCl/Dextrose (Nexterone In Dextrose 150 Mg/100 Ml) Confirm Administered Dose 100 mls @ as directed IV .STK-MED ONE Stop: 01/21/19 14:58 Last Admin: 01/21/19 15:06 Dose: Not Given Amiodarone HCl/Dextrose 150 mg (/ Premix) 100 mls @ 400 mls/hr IV NOW ONE; Protocol Stop: 01/21/19 15:16 Last Admin: 01/21/19 15:05 Dose: 400 mls/hr Midazolam HCl (Versed 1 Mg/Ml) 2 mg IVPUSH ONETIME ONE Stop: 01/21/19 15:02 Last Admin: 01/21/19 15:15 Dose: 2 mg Morphine Sulfate (Morphine) 2 mg IVPUSH ONETIME ONE Stop: 01/21/19 15:02 Last Admin: 01/21/19 15:05 Dose: 2 mg Potassium Chloride (Klor-Con M20) 20 meq PO ONETIME ONE Stop: 01/21/19 16:04 Last Admin: 01/21/19 16:11 Dose: 20 meq - Exam Quality Assessment: Reports: Supplemental Oxygen General: Reports: Alert, Oriented, Cooperative, Mild Distress HEENT: Reports: Pupils Equal, Pupils Reactive, EOMI. Denies: Mucous Membr. Moist/[place] (Dry) Neck: Reports: Supple, Trachea Midline, No JVD Lungs: Reports: Clear to Auscultation, Normal Respiratory Effort Cardiovascular: Reports: Regular Rhythm, Tachycardia, Other (Prolonged QT) GI/Abdominal Exam: Normal Bowel Sounds, Soft, Non-Tender, No Distention Back Exam: Reports: Normal Inspection, Full Range of Motion Extremities: Normal Inspection, No Pedal Edema Skin: Reports: Warm, Dry, Intact Neurological: Reports: No New Focal Deficit Psy/Mental Status: Reports: Alert, Anxious
--- NOTE | 2019-01-21 19:43 | PN ---
THC Physician - Brief Progress [id number]/19/2019 18:54[facility] Ruslan Stephens, GANESH - MOIS[facility] ([facility] - MOISES CRUZLAURI LAMBERTBelloDate of Service 01/21/2019 18:54HPI/Events o f Note 58-year-old female presented to the hospital with chest pain. Patient was shocked for wide-co mplex tachycardia with heart rate of 200.Reportedly it was V. tach. The patient was started on amiod arone drip. I was not able to see the strip myself.Case was discussed with bedside hospitalist. Pro bably the initial rhythm the patient had his V. tach. Patient has no history of coronary artery dise ase in the past. This is very concerning for possible new onset MIPatient needs to be on cardiac [place] ter soon. Patient was started on heparin drip for possible MICase was discussed with the bedside hos pitalist and the patient will be transferred down to cardiac center as soon as possible.Possibly the patient needs to go to the [employer] [facility] as soon as possible.Started on aspirin and heparin.Interventions Major-Arrhythmia - evaluation and managementMinor-Communication with other healthcare providers and/o r family
[2019-01-21 20:01] VITALS: PULSE 93
[2019-01-21 20:29] VITALS: BP 149/69
[2019-01-21] MEDS ORDERED: metFORMIN 500 MG Tab.ER PO SCH (21:00)
[2019-01-22] MEDS ORDERED: Insulin Aspart 100 Units/ML 3 ML Pen SUBCUT SCH (07:30)
[2019-01-22] MEDS ORDERED: Hydrochlorothiazide 25 MG Tab PO SCH (09:00)
[2019-01-22] MEDS ORDERED: Potassium Bicarbonate 25 MEQ Tab.EFF PO SCH (09:00)
[2019-01-22] MEDS ORDERED: Pantoprazole 40 MG Tab.CR PO SCH (09:00)
[2019-01-22] MEDS ORDERED: Aspirin 325 MG Tab PO SCH (09:00)
[2019-01-22] MEDS ORDERED: Sertraline 50 MG Tab PO SCH (09:00)
== END 2019-01-21 20:15 | DRG 201 ==
LOC: MW.ED 14:46 → MW.ICU 17:55
PROVIDERS: ADMIT Internal Medicine; ATTEND Internal Medicine
DX: I47.2 Ventricular tachycardia (principal); I10 Essential (primary) hypertension; E11.9 Type 2 diabetes mellitus without complications; K21.9 Gastro-esophageal reflux disease without esophagitis; G43.909 Migraine, unspecified, not intractable, without status migrainosus; F32.9 Major depressive disorder, single episode, unspecified; E86.0 Dehydration; E87.6 Hypokalemia; R94.31 Abnormal electrocardiogram [ECG] [EKG]; Z88.0 Allergy status to penicillin; Z79.84 Long term (current) use of oral hypoglycemic drugs; Z79.899 Other long term (current) drug therapy; Z90.710 Acquired absence of both cervix and uterus
CPT/HCPCS: 36415; 71045; 71045-26; 80053; 81001; 83690; 83735; 84484; 85025; 85379; 85730; 87086; 87088; 87186; 93005; 96361; 96365; 96366; 96368; 96374; 96375; 96376; 99285-25; A9270-GY; J0282; J1644; J2250; J2270; J3480; J7040

== ENCOUNTER 2019-02-06 17:19 | Emergency (ER) | payer BC ==
--- NOTE | 2019-02-06 17:56 | EDM.PDOC ---
ED HPI GENERAL MEDICAL PROBLEM - General Chief Complaint: ENT Problem Stated Complaint: LEFT EAR PAIN Time Seen by Provider: 02/06/19 17:25 Source of Information: Reports: Patient History Limitations: Reports: No Limitations - History of Present Illness INITIAL COMMENTS - FREE TEXT/NARRATIVE: History of present illness: []Patient's had one week of cold symptoms and severe left ear pain. Review of systems: As per history of present illness and below otherwise all systems reviewed and negative. Past medical history: As per history of present illness and as reviewed below otherwise noncontributory. Surgical history: As per history of present illness and as reviewed below otherwise noncontributory. Social history: No reported history of drug or alcohol abuse. Family history: As per history of present illness and as reviewed below otherwise noncontributory. Physical exam: General: Well developed, well nourished in NAD HEENT: Atraumatic, normocephalic, pupils reactive, negative for conjunctival pallor or scleral icterus, mucous membranes moist, throat clear, neck supple, nontender, trachea midline. Lungs: Clear to auscultation, breath sounds equal bilaterally, chest nontender. Heart: S1S2, regular, negative for clicks, rubs, or JVD. Abdomen: NABS, Soft, nondistended, nontender. Negative for masses or hepatosplenomegaly. Negative for costovertebral tenderness. Pelvis: Stable nontender. Genitourinary: Deferred. Rectal: Deferred. Extremities: Atraumatic, negative for cords or calf pain. Neurovascular unremarkable. Neuro: Awake, alert, oriented. Cranial nerves II through XII unremarkable. Cerebellum unremarkable. Motor and sensory unremarkable throughout. Exam nonfocal. Skin:warm and dry Diagnostics: none Therapeutics: none ED Course: stable Impression: left otitis media Prescriptions: zithromax Plan: Take meds as directed, follow up with your primary care physician, return to ER if symptoms worsen or change. Definitive disposition and diagnosis as appropriate pending reevaluation and review of above. Left Ear Pain Score (Numeric/FACES): 4 - Related Data Allergies Allergy/AdvReac Type Severity Reaction Status Date / Time Penicillins Allergy Chest Pain Verified 02/06/19 17:32 Home Meds: Home Meds Ramipril [Altace] 10 mg PO DAILY 11/01/13 [History] Pantoprazole Sodium 40 mg PO DAILY 05/24/14 [History] metFORMIN [Glucophage XR] 500 mg PO BID 12/12/17 [History] Sertraline [Zoloft] 50 mg PO DAILY 07/19/18 [History] Aspirin 325 mg PO DAILY tablet 01/21/19 [Rx] Azithromycin [Zithromax] 250 mg PO DAILY #6 tab 02/06/19 [Rx] LORazepam [Ativan] 1 mg PO ASDIRECTED 02/06/19 [History] Pantoprazole [ProTONIX] 40 mg PO DAILY 02/06/19 [History] Past Medical History HEENT History: Reports: Other (See Below) Other HEENT History: wears glasses Cardiovascular History: Reports: Hypertension Respiratory History: Reports: None Gastrointestinal History: Reports: GERD Genitourinary History: Reports: None [employer]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: Musculoskeletal History: Reports: None Neurological History: Reports: Migraines, Other (See Below) Other Neuro History: hx of motion sickness, hx of migraines in the past- not recently Psychiatric History: Reports: Autism, Depression Endocrine/Metabolic History: Reports: Diabetes, Type II Hematologic History: Reports: Blood Transfusion(s) Immunologic History: Reports: None Oncologic (Cancer) History: Reports: None Dermatologic History: Reports: None - Infectious Disease History Infectious Disease History: Reports: Chicken Pox - Past Surgical History Head Surgeries/Procedures: Reports: None HEENT Surgical History: Reports: None Cardiovascular Surgical History: Reports: None Respiratory Surgical History: Reports: None GI Surgical History: Reports: None Female Surgical History: Reports: Hysterectomy Endocrine Surgical History: Reports: None, Thyroid Biopsy Neurological Surgical History: Reports: Laminectomy Musculoskeletal Surgical History: Reports: Arthroscopic Knee Other Musculoskeletal Surgeries/Procedures:: right knee minscus repair, right bunon surgery Oncologic Surgical History: Reports: None Dermatological Surgical History: Reports: None Social & Family History - Family History Family Medical History: Noncontributory - Tobacco Use Smoking Status *Q: Never Smoker Second Hand Smoke Exposure: No - Caffeine Use Caffeine Use: Reports: Coffee - Recreational Drug Use Recreational Drug Use: No - Living Situation & Occupation Living situation: Reports: , with Spouse Occupation: Retired ED ROS ENT - Review of Systems Review Of Systems: See Below ED EXAM, ENT - Physical Exam Exam: See Below Course - Vital Signs Last Recorded V/S: Last Vital Signs Temp 97.5 F 02/06/19 18:06 Pulse 76 02/06/19 18:06 Resp 16 02/06/19 18:06 BP 134/93 H 02/06/19 18:06 Pulse Ox 97 02/06/19 18:06 Departure - Departure Time of Disposition: 17:55 Disposition: Home, Self-Care 01 Condition: Good Clinical Impression: Left otitis media Qualifiers: Otitis media type: unspecified Qualified Code(s): H66.92 - Otitis media, unspecified, left ear - Discharge Information *PRESCRIPTION DRUG MONITORING PROGRAM REVIEWED*: Not Applicable *COPY OF PRESCRIPTION DRUG MONITORING REPORT IN PATIENT RENY: Not Applicable Prescriptions: Azithromycin [Zithromax] 250 mg PO DAILY #6 tab Instructions: Otitis Media, Adult, [id number] Referrals: Wayne Bolivar MD [Primary Care Provider] - Forms: ED Department Discharge Additional Instructions: The following information is given to patients seen in the emergency department who are being discharged to home. This information is to outline your options for follow-up care. We provide all patients seen in our emergency department with a follow-up referral. The need for follow-up, as well as the timing and circumstances, are variable depending upon the specifics of your emergency department visit. If you don't have a primary care physician on staff, we will provide you with a referral. We always advise you to contact your personal physician following an emergency department visit to inform them of the circumstance of the visit and for follow-up with them and/or the need for any referrals to a consulting specialist. The emergency department will also refer you to a specialist when appropriate. This referral assures that you have the opportunity for follow-up care with a specialist. All of these measure are taken in an effort to provide you with optimal care, which includes your follow-up. Under all circumstances we always encourage you to contact your private physician who remains a resource for coordinating your care. When calling for follow-up care, please make the office aware that this follow-up is from your recent emergency room visit. If for any reason you are refused follow-up, please contact the [facility] Emergency Department at and asked to speak to the emergency department charge nurse. [facility] [address] [place] [id number]
[2019-02-06 18:07] VITALS: BP 134/93; PULSE 76
== END 2019-02-06 18:08 | disposition home or self-care (01) ==
LOC: MW.ED 17:19
DX: H66.92 Otitis media, unspecified, left ear (principal); I10 Essential (primary) hypertension; E11.9 Type 2 diabetes mellitus without complications; K21.9 Gastro-esophageal reflux disease without esophagitis; Z79.82 Long term (current) use of aspirin; Z88.0 Allergy status to penicillin; Z79.899 Other long term (current) drug therapy; Z79.84 Long term (current) use of oral hypoglycemic drugs
CPT/HCPCS: 99282

== ENCOUNTER 2019-04-23 20:38 | Emergency (ER) | payer BC ==
[2019-04-23] MEDS ORDERED: HYDROmorphone 2 MG/ML Syringe IVPUSH ONE (20:50)
[2019-04-23] MEDS ORDERED: Ondansetron 4 MG/2 ML SDV IVPUSH ONE (20:50)
--- NOTE | 2019-04-23 21:50 | CT ---
INDICATION: Neck and left-sided arm pain. Status post heart defibrillator placement 1 week ago. COMPARISON: None available TECHNIQUE: CT examination of the cervical spine is performed without contrast using spiral technique. 2 mm thick axial, sagittal and coronal reconstructions were made. Please note that all CT scans at this facility use dose modulation, iterative reconstruction, and/or weight-based dosing when appropriate to reduce radiation dose to as low as reasonably achievable. FINDINGS: : There is no sign of fracture or subluxation. The cervical vertebral bodies are normal in height and are in anatomic alignment. There is no sign of prevertebral soft tissue swelling. There is mild disc degenerative disease at C5-6 and C6-7. There is mild diffuse disc bulging and posterior osteophytic ridging at these levels. There is moderate left greater than right C6-7 foraminal stenosis from uncovertebral joint hypertrophy. There is moderate left and mild right C5-6 foraminal stenosis from uncovertebral joint hypertrophy. There is mild disc degenerative disease at C4-5 without any distinct disc bulge or osteophytic ridging. The rest of the intervertebral discs are normal in appearance. There is mild left C7-T1 facet arthropathy. The airway structures are normal in appearance. The visualized skull base is normal in appearance. The visualized inferior brain is normal in appearance. The apices of the lungs are clear. There is a left-sided defibrillator generator with a lead entering the left subclavian vein and passing into the IVC. There is no sign of a pneumothorax, pleural effusion, or pulmonary contusion. IMPRESSION: No sign of acute osseous injury to the cervical spine. Mild disc degenerative disease at C5-6 and C6-7 with moderate bilateral C6-7 and moderate left C5-6 foraminal stenosis from uncovertebral joint hypertrophy. Please note that all CT scans at this facility use dose modulation, iterative reconstruction, and/or weight-based dosing when appropriate to reduce radiation dose to as low as reasonably achievable. Dictated by Luigi Moralez MD @ Apr 23 2019 9:43PM Signed by Dr. Luigi Moralez @ Apr 23 2019 9:49PM
[2019-04-23] MEDS ORDERED: Cyclobenzaprine 10 MG Tab PO ONE (22:02)
--- NOTE | 2019-04-23 22:07 | EDM.PDOC ---
ED HPI GENERAL MEDICAL PROBLEM - General Chief Complaint: Cardiovascular Problem Stated Complaint: BP Time Seen by Provider: 04/23/19 20:41 Source of Information: Reports: Patient History Limitations: Reports: No Limitations - History of Present Illness INITIAL COMMENTS - FREE TEXT/NARRATIVE: HISTORY OF PRESENT ILLNESS: Patient is a 59-year-old female who 1 week ago had a cardiac ablation and defibrillator placed at [facility] presents to the ER with complaints of posterior neck pain and noted that her blood pressure is elevated. Patient states that she was in the operating room for over 6 hours and is unsure what position her neck was in. Immediately after the surgery and continuously since that time, she has had continuous posterior neck pain and tightness mostly on the left-hand side near the trapezius area. Rates pain as 5/ 10 in severity. Reports tightness and pain. Denies any anterior neck pain. No blurred vision slurred speech or dizziness. Denies any focal weakness or paresthesias. No recent trauma or falls. Denies any chest pain dyspnea or abdominal pain. No syncope. No nausea vomiting or diarrhea. Denies any urinary symptoms. No GI bleeding. Patient is not currently on any antihypertensives. No other complaints at this time. REVIEW OF SYSTEMS: Other than the symptoms associated with the present events, the following is reported with regard to recent health: General: (-) fever. HENT: (-) congestion. Respiratory: (-) cough. Cardiovascular: (-) chest pain. GI: (-) abdominal pain. : (-) urinary complaints. Musculoskeletal: (+)posterior neck pain, mostly on left. Endocrine: (-) generalized weakness. Neurological: (-) localized weakness. Skin: (-) rash PAST MEDICAL HISTORY: reviewed as per nursing notes SOCIAL HISTORY: reviewed as per nursing notes, MEDICATIONS: Per nurse's note ALLERGIES: Per nurse's note, reviewed by me PHYSICAL EXAMINATION: GENERALIZED APPEARANCE: well developed, well nourished in mild distress VITAL SIGNS: Per nurse's note, reviewed by me SKIN: Warm, dry; (-) cyanosis; (-) rash. surgical site c/d/i HEAD: (-) scalp swelling, (-) tenderness. EYES: (-) conjunctival pallor, (-) scleral icterus. ENMT: (-) stridor; mucous membranes moist. NECK: (+)left trapezius and left paracervical tenderness, minimal midline tenderness without step off or deformity. no meningismus. no anterior tenderness. (-) stiffness, (-) bruit. (-) palpable thyromegaly CHEST AND RESPIRATORY: (-) rales, (-) rhonchi, (-) wheezes; breath sounds equal bilaterally. surgical site as above HEART AND CARDIOVASCULAR: (-) irregularity; (-) murmur, (-) gallop. ABDOMEN AND GI: Soft; (-) tenderness, (-) guarding, (-) rebound, (-) palpable masses, EXTREMITIES: (-) deformity, (-) edema. NEURO AND PSYCH: Alert. Cranial nerves grossly intact; strength symmetric. gait steady. EOMI. visual cummins intact. 5/5+ strength. NIHSS= 0. senastion intact. DIAGNOSTICS: CT read by radiologist and reviewed by myself EKG: sr at 84 bpm. nml axis. [address] elevation or depression. EMERGENCY DEPARTMENT COURSE AND TREATMENT/MDM: Patient's condition improved during Emergency Department evaluation. Given pain medication with improvement of blood pressure. Do not suspect carotid etiology, no anterior neck pain. Do not suspect atypical presentation of ACS or cardiopulmonary etiology to her pain. Pain is entirely reproducible and has been constant since she woke up from the OR one week ago. NVI. PLAN AND FOLLOW-UP:to follow up with PCP and/or tile shader tomorrow. Blood pressure will need to be rechecked and she may need be started on antihypertensives. To return immediately with any new or worsening symptoms. Given discharge precautions. Patient received written and verbal instructions regarding this condition. Follow up to be arranged by patient with pcp/ tile shader tomorrow for further evaluation. Given discharge precautions. patient expressed verbal understanding. neck Pain Score (Numeric/FACES): 5 - Related Data Allergies Allergy/AdvReac Type Severity Reaction Status Date / Time Penicillins Allergy Chest Pain Verified 04/23/19 20:39 Home Meds: Home Meds Pantoprazole Sodium 40 mg PO DAILY 05/24/14 [History] metFORMIN [Glucophage XR] 500 mg PO BID 12/12/17 [History] Sertraline [Zoloft] 50 mg PO DAILY 07/19/18 [History] LORazepam [Ativan] 1 mg PO ASDIRECTED 02/06/19 [History] Pantoprazole [ProTONIX] 40 mg PO DAILY 02/06/19 [History] Acetaminophen/oxyCODONE [Percocet 325-5 MG] 1 each PO Q6HR #10 tab 04/23/19 [Rx] Cyclobenzaprine [Flexeril] 10 mg PO BID PRN #10 tab 04/23/19 [Rx] Propranolol [Inderal] 1 tab PO BID 04/23/19 [History] Past Medical History HEENT History: Reports: Other (See Below) Other HEENT History: wears glasses Cardiovascular History: Reports: Hypertension Respiratory History: Reports: None Gastrointestinal History: Reports: GERD Genitourinary History: Reports: None 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: Musculoskeletal History: Reports: None Neurological History: Reports: Migraines, Other (See Below) Other Neuro History: hx of motion sickness, hx of migraines in the past- not recently Psychiatric History: Reports: Autism, Depression Endocrine/Metabolic History: Reports: Diabetes, Type II Hematologic History: Reports: Blood Transfusion(s) Immunologic History: Reports: None Oncologic (Cancer) History: Reports: None Dermatologic History: Reports: None - Infectious Disease History Infectious Disease History: Reports: Chicken Pox - Past Surgical History Head Surgeries/Procedures: Reports: None HEENT Surgical History: Reports: None Cardiovascular Surgical History: Reports: Cardiac Ablation, Other (See Below) Respiratory Surgical History: Reports: None GI Surgical History: Reports: None Female Surgical History: Reports: Hysterectomy Endocrine Surgical History: Reports: None, Thyroid Biopsy Neurological Surgical History: Reports: Laminectomy Musculoskeletal Surgical History: Reports: Arthroscopic Knee Other Musculoskeletal Surgeries/Procedures:: right knee minscus repair, right bunon surgery Oncologic Surgical History: Reports: None Dermatological Surgical History: Reports: None Social & Family History - Family History Family Medical History: Noncontributory - Tobacco Use Smoking Status *Q: Never Smoker - Caffeine Use Caffeine Use: Reports: None - Recreational Drug Use Recreational Drug Use: No - Living Situation & Occupation Living situation: Reports: , with Spouse Occupation: Retired ED ROS GENERAL - Review of Systems Review Of Systems: See Below (see dictation) ED EXAM, GENERAL - Physical Exam Exam: See Below (see dictation) Course - Vital Signs Last Recorded V/S: Last Vital Signs Temp 98.6 F 04/23/19 20:41 Pulse 68 04/23/19 22:30 Resp 16 04/23/19 22:30 BP 149/94 H 04/23/19 22:30 Pulse Ox 98 04/23/19 22:30 - Orders/Labs/Meds Meds: Medications Discontinued Medications Generic Name Dose Route Start Last Admin Trade Name Freq PRN Reason Stop Dose Admin Cyclobenzaprine HCl 10 mg 04/23/19 22:02 04/23/19 22:31 Flexeril PO 04/23/19 22:03 10 mg ONETIME ONE Administration Hydromorphone HCl 1 mg 04/23/19 20:50 04/23/19 20:58 Dilaudid IVPUSH 04/23/19 20:51 1 mg ONETIME ONE Administration Ondansetron HCl 4 mg 04/23/19 20:50 04/23/19 20:58 Zofran IVPUSH 04/23/19 20:51 4 mg ONETIME ONE Administration Departure - Departure Time of Disposition: 22:37 Disposition: Home, Self-Care 01 Condition: Good Clinical Impression: Cervical strain, Hypertension Prescriptions: Acetaminophen/oxyCODONE [Percocet 325-5 MG] 1 each PO Q6HR #10 tab Cyclobenzaprine [Flexeril] 10 mg PO BID PRN #10 tab PRN Reason: neck pain/spasm Instructions: Cervical Sprain, Hypertension Referrals: Wayne Bolivar MD [Primary Care Provider] - 1 Day Forms: ED Department Discharge Additional Instructions: The following information is given to patients seen in the emergency department who are being discharged to home. This information is to outline your options for follow-up care. We provide all patients seen in our emergency department with a follow-up referral. The need for follow-up, as well as the timing and circumstances, are variable depending upon the specifics of your emergency department visit. If you don't have a primary care physician on staff, we will provide you with a referral. We always advise you to contact your personal physician following an emergency department visit to inform them of the circumstance of the visit and for follow-up with them and/or the need for any referrals to a consulting specialist. The emergency department will also refer you to a specialist when appropriate. This referral assures that you have the opportunity for follow-up care with a specialist. All of these measure are taken in an effort to provide you with optimal care, which includes your follow-up. Under all circumstances we always encourage you to contact your private physician who remains a resource for coordinating your care. When calling for follow-up care, please make the office aware that this follow-up is from your recent emergency room visit. If for any reason you are refused follow-up, please contact the [facility] Emergency Department at and asked to speak to the emergency department charge nurse. Sepsis Event Note - Evaluation Sepsis Screening Result: No Definite Risk - Focused Exam Vital Signs: Vital Signs Temp Pulse Resp BP Pulse Ox 04/23/19 22:30 68 16 149/94 H 98 04/23/19 21:45 70 16 159/101 H 96 04/23/19 21:04 74 16 171/105 H 98 04/23/19 20:41 98.6 F 79 18 194/112 H 98 Date Exam was Performed: 04/24/19 Time Exam was Performed: 03:17
[2019-04-23 22:31] VITALS: BP 149/94; PULSE 68
== END 2019-04-23 22:37 | disposition home or self-care (01) ==
LOC: MW.ED 20:38
DX: S16.1XXA Strain of muscle, fascia and tendon at neck level, initial encounter (principal); I10 Essential (primary) hypertension; E11.9 Type 2 diabetes mellitus without complications; F32.9 Major depressive disorder, single episode, unspecified; K21.9 Gastro-esophageal reflux disease without esophagitis; Z79.84 Long term (current) use of oral hypoglycemic drugs; Z79.899 Other long term (current) drug therapy; Z88.0 Allergy status to penicillin; Z95.810 Presence of automatic (implantable) cardiac defibrillator; X58.XXXA Exposure to other specified factors, initial encounter
CPT/HCPCS: 72125; 93005; 96374; 96375; 99284; A9270; J1170; J2405; 99283

== ENCOUNTER 2020-02-23 19:43 | Emergency (ER) | payer BC ==
[2020-02-23] MEDS ORDERED: Sodium Chloride 0.9% 2.5 ML Syringe FLUSH PRN (19:53)
[2020-02-23] MEDS ORDERED: Sodium Chloride 0.9% 10 ML Syringe FLUSH PRN (19:53)
[2020-02-23] MEDS ORDERED: Aspirin 81 MG Tab.Chew PO ONE (19:53)
--- NOTE | 2020-02-23 20:10 | EDM.PDOC ---
ED HPI GENERAL MEDICAL PROBLEM - General Chief Complaint: Cardiovascular Problem Stated Complaint: CHEST PAIN,HIGH BLOOD PRESSURE Time Seen by Provider: 02/23/20 19:51 Source of Information: Reports: Patient History Limitations: Reports: No Limitations - History of Present Illness INITIAL COMMENTS - FREE TEXT/NARRATIVE: 59-year-old female with history of DM II, HTN, long QT syndrome, AICD presents with acute onset midsternal chest discomfort while she was driving at 5:15 PM. Her chest pain is described as burning sensation, constant, rated 7/10. Pain radiated to the left chest and upper back. She took 4 Tums with no relief. She checked her blood pressure and it was in the 200s. 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 Mendoza. She denies fever, chills, nausea, vomiting, sweats. She admits to palpitations. ROS: A 10-point review of systems, other than pertinent positives and negatives as stated per HPI, is otherwise negative Past medical history: No additional pertinent history Past Surgical history: No additional pertinent history Social history: No additional pertinent history Family history: No additional pertinent history PHYSICAL EXAM General: AOx4, GCS = 15, No distress HEENT: dry mucous membrane Neck: supple, no meningismus, no Kernig or Brudzinski Cardiac: S1S2 RRR Respiratory: CTAB, no crackles or rales, no wheezing Abdomen: Soft, nontender, no rebound or guarding, nondistended, no pulsatile mass. Back: nontender Musculoskeletal: NVI distally, no deformity Neuro: No focal deficits, CN 2 - 12 WNL. Left Chest Pain Score (Numeric/FACES): 7 - Related Data Allergies Allergy/AdvReac Type Severity Reaction Status Date / Time Penicillins Allergy Chest Pain Verified 02/23/20 19:47 Home Meds: Home Meds metFORMIN [Glucophage XR] 500 mg PO TID 12/12/17 [History] Pantoprazole [ProTONIX] 40 mg PO DAILY 02/06/19 [History] Magnesium 400 mg PO BID 02/23/20 [History] Metoprolol Succinate [Toprol XL 50mg] 50 mg PO DAILY 02/23/20 [History] Ramipril [Altace] 5 mg PO DAILY 02/23/20 [History] Past Medical History HEENT History: Reports: Other (See Below) Other HEENT History: wears glasses Cardiovascular History: Reports: Hypertension Respiratory History: Reports: None Gastrointestinal History: Reports: GERD Genitourinary History: Reports: None 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: Musculoskeletal History: Reports: None Neurological History: Reports: Migraines, Other (See Below) Other Neuro History: hx of motion sickness, hx of migraines in the past- not recently Psychiatric History: Reports: Autism, Depression Endocrine/Metabolic History: Reports: Diabetes, Type II Hematologic History: Reports: Blood Transfusion(s) Immunologic History: Reports: None Oncologic (Cancer) History: Reports: None Dermatologic History: Reports: None - Infectious Disease History Infectious Disease History: Reports: Chicken Pox, Measles, Mumps - Past Surgical History Head Surgeries/Procedures: Reports: None HEENT Surgical History: Reports: None Cardiovascular Surgical History: Reports: Cardiac Ablation Respiratory Surgical History: Reports: None GI Surgical History: Reports: None Female Surgical History: Reports: Hysterectomy Endocrine Surgical History: Reports: None, Thyroid Biopsy Neurological Surgical History: Reports: Laminectomy Musculoskeletal Surgical History: Reports: Arthroscopic Knee Other Musculoskeletal Surgeries/Procedures:: right knee minscus repair, right bunon surgery Oncologic Surgical History: Reports: None Dermatological Surgical History: Reports: None Social & Family History - Family History Family Medical History: No Pertinent Family History - Tobacco Use Tobacco Use Status *Q: Never Tobacco User - Caffeine Use Caffeine Use: Reports: Coffee - Recreational Drug Use Recreational Drug Use: No - Living Situation & Occupation Living situation: Reports: , with Spouse Occupation: Retired ED ROS GENERAL - Review of Systems Review Of Systems: See Below (see dictation) ED EXAM, GENERAL - Physical Exam Exam: See Below (see dictation) #1 Interpretation EKG Interpretation Comments: Heart rate = 80 bpm, normal sinus rhythm, ST depression in II, III, aVF, normal QRS interval, no STEMI. EKG and rhythm strip interpreted by me at 2001 Course - Vital Signs Last Recorded V/S: Last Vital Signs Temp 97.1 F 02/23/20 19:48 Pulse 85 02/23/20 21:57 Resp 18 02/23/20 21:57 BP 152/82 H 02/23/20 21:57 Pulse Ox 97 02/23/20 21:57 - Orders/Labs/Meds Orders: Active Orders 24 hr Category Date Time Status Cardiac Monitoring [RC] . DIRECTED Care 02/23/20 19:53 Active EKG Documentation Completion [RC] STAT Care 02/23/20 19:54 Active Pulse Oximetry [RC] ASDIRECTED Care 02/23/20 19:53 Active CORONAVIRUS COVID-19 PCR PHL Stat Lab 02/23/20 21:33 Received Sodium Chloride 0.9% [Saline Flush] Med 02/23/20 19:53 Active 10 ml FLUSH ASDIRECTED PRN Sodium Chloride 0.9% [Saline Flush] Med 02/23/20 19:53 Active 2.5 ml FLUSH ASDIRECTED PRN Saline Lock Insert [OM.PC] Stat Oth 02/23/20 19:53 Ordered Medication Orders Sodium Chloride (Saline Flush) 10 ml FLUSH ASDIRECTED PRN PRN Reason: Keep Vein Open Last Admin: 02/23/20 20:28 Dose: 10 ml Documented by: MIAN Sodium Chloride (Saline Flush) 2.5 ml FLUSH ASDIRECTED PRN PRN Reason: Keep Vein Open Last Admin: 02/23/20 20:18 Dose: 2.5 ml Documented by: MIAN Labs: Laboratory Tests 02/23/20 02/23/20 02/23/20 Range/Units 19:50 19:50 19:50 WBC 11.09 H (4.0-11.0) K/uL RBC 4.72 (4.30-5.90) M/uL Hgb 15.1 (12.0-16.0) g/dL Hct 45.6 (36.0-46.0) % MCV 96.6 (80.0-98.0) fL MCH 32.0 (27.0-32.0) pg MCHC 33.1 (31.0-37.0) g/dL RDW Std Deviation 46.3 (28.0-62.0) fl RDW Coeff of Anders 13 (11.0-15.0) % Plt Count 315 (150-400) K/uL MPV 10.00 (7.40-12.00) fL Neut % (Auto) 53.4 (48.0-80.0) % Lymph % (Auto) 36.2 (16.0-40.0) % Potter % (Auto) 7.2 (0.0-15.0) % Eos % (Auto) 2.7 (0.0-7.0) % Baso % (Auto) 0.5 (0.0-1.5) % Neut # (Auto) 5.9 H (1.4-5.7) K/uL Lymph # (Auto) 4.0 H (0.6-2.4) K/uL Potter # (Auto) 0.8 (0.0-0.8) K/uL Eos # (Auto) 0.3 (0.0-0.7) K/uL Baso # (Auto) 0.1 (0.0-0.1) K/uL Nucleated RBC % 0.0 /100WBC Nucleated RBCs # 0 K/uL INR 1.08 D-Dimer, Quantitative 2.57 H (0.0-0.50) mg/L FEU Sodium 141 (136-145) mmol/L Potassium 3.4 L (3.5-5.1) mmol/L Chloride 101 (98-107) mmol/L Carbon Dioxide 28.6 (21.0-32.0) mmol/L BUN 9 (7.0-18.0) mg/dL Creatinine 0.8 (0.6-1.0) mg/dL Est Cr Clr Drug Dosing 67.29 mL/min Estimated GFR (MDRD) > 60.0 ml/min Glucose 130 H (74-106) mg/dL Calcium 9.8 (8.5-10.1) mg/dL Ferritin (8-252) ng/mL Total Bilirubin 0.3 (0.2-1.0) mg/dL AST 24 (15-37) IU/L ALT 34 (14-63) IU/L Alkaline Phosphatase 102 (46-116) U/L Troponin I < 0.050 (0.000-0.056) ng/mL C-Reactive Protein 0.30 (0.00-0.90) mg/dL Total Protein 8.5 H (6.4-8.2) g/dL Albumin 4.9 (3.4-5.0) g/dL Globulin 3.6 (2.6-4.0) g/dL Albumin/Globulin Ratio 1.4 (0.9-1.6) SARS CoV-2 RNA Rapid ROSALIO (NEGATIVE) 02/23/20 02/23/20 Range/Units 19:50 21:33 WBC (4.0-11.0) K/uL RBC (4.30-5.90) M/uL Hgb (12.0-16.0) g/dL Hct (36.0-46.0) % MCV (80.0-98.0) fL MCH (27.0-32.0) pg MCHC (31.0-37.0) g/dL RDW Std Deviation (28.0-62.0) fl RDW Coeff of Anders (11.0-15.0) % Plt Count (150-400) K/uL MPV (7.40-12.00) fL Neut % (Auto) (48.0-80.0) % Lymph % (Auto) (16.0-40.0) % Potter % (Auto) (0.0-15.0) % Eos % (Auto) (0.0-7.0) % Baso % (Auto) (0.0-1.5) % Neut # (Auto) (1.4-5.7) K/uL Lymph # (Auto) (0.6-2.4) K/uL Potter # (Auto) (0.0-0.8) K/uL Eos # (Auto) (0.0-0.7) K/uL Baso # (Auto) (0.0-0.1) K/uL Nucleated RBC % /100WBC Nucleated RBCs # K/uL INR D-Dimer, Quantitative (0.0-0.50) mg/L FEU Sodium (136-145) mmol/L Potassium (3.5-5.1) mmol/L Chloride (98-107) mmol/L Carbon Dioxide (21.0-32.0) mmol/L BUN (7.0-18.0) mg/dL Creatinine (0.6-1.0) mg/dL Est Cr Clr Drug Dosing mL/min Estimated GFR (MDRD) ml/min Glucose (74-106) mg/dL Calcium (8.5-10.1) mg/dL Ferritin 61 (8-252) ng/mL Total Bilirubin (0.2-1.0) mg/dL AST (15-37) IU/L ALT (14-63) IU/L Alkaline Phosphatase (46-116) U/L Troponin I (0.000-0.056) ng/mL C-Reactive Protein (0.00-0.90) mg/dL Total Protein (6.4-8.2) g/dL Albumin (3.4-5.0) g/dL Globulin (2.6-4.0) g/dL Albumin/Globulin Ratio (0.9-1.6) SARS CoV-2 RNA Rapid ROSALIO NEGATIVE (NEGATIVE) Meds: Medications Generic Name Dose Route Start Last Admin Trade Name Zakiya PRN Reason Stop Dose Admin Sodium Chloride 10 ml 02/23/20 19:53 02/23/20 20:28 Saline Flush FLUSH 10 ml ASDIRECTED PRN Administration Keep Vein Open Sodium Chloride 2.5 ml 02/23/20 19:53 02/23/20 20:18 Saline Flush FLUSH 2.5 ml ASDIRECTED PRN Administration Keep Vein Open Discontinued Medications Generic Name Dose Route Start Last Admin Trade Name Zakiya PRN Reason Stop Dose Admin Aspirin 324 mg 02/23/20 19:53 02/23/20 20:19 Aspirin PO 02/23/20 19:54 324 mg ONETIME ONE Administration Iopamidol 100 ml 02/23/20 21:06 02/23/20 21:36 Isovue Multipack-370 (76%) IVPUSH 02/23/20 21:07 100 ml ONETIME STA Administration Morphine Sulfate 4 mg 02/23/20 20:38 02/23/20 21:12 Morphine IVPUSH 02/23/20 20:39 4 mg ONETIME ONE Administration Nitroglycerin 0.4 mg 02/23/20 19:53 02/23/20 20:31 Nitrostat SL 0.4 mg Q5M PRN Administration Chest Pain Nitroglycerin 1 gm 02/23/20 22:01 02/23/20 22:08 Nitro-Bid 2% TOP 02/23/20 22:02 1 gm ONETIME ONE Administration Ondansetron HCl 4 mg 02/23/20 21:12 02/23/20 21:12 Zofran IVPUSH 02/23/20 21:13 4 mg ONETIME ONE Administration - Re-Assessments/Exams Free Text/Narrative Re-Assessment/Exam: 02/23/20 20:38 Given ASA 324 mg and nitroglycerin x3, her CP is down to 5/10, will give morphine 4mg IV. 02/23/20 21:36 Patient is requesting transfer to [facility] because her skull grinder is there. 02/23/20 22:00 Patient's pain is resolved after nitro, aspirin, morphine. Will place 1 inch Nitropaste and arrange for transfer. 02/23/20 22:25 Turner Bridges accepted transfer to [place] [facility]. MEDICAL DECISION MAKING: I reviewed the patients past medical records, lab and radiographic findings. I discussed the case with the patient. My differential diagnosis included: ACS, atypical chest pain, aortic dissection. CT angio chest, abdomen, pelvis was performed, with no findings suggestive of PE or dissection. Patient was given aspirin, nitro, morphine. Patient has a heart score = 5, her chest pain was nitro responsive, rated 0/10 after. She warrants admission for further cardiac work-up. Patient is requesting to be transferred to [facility] which is where her skull grinder is. Departure - Departure Time of Disposition: 22:24 Disposition: DC/Tfer to Other 70 Reason for Transfer *Q: Other Condition: Good Clinical Impression: Chest pain Forms: ED Department Discharge Sepsis Event Note (ED) - Evaluation Sepsis Screening Result: No Definite Risk - Focused Exam Vital Signs: Vital Signs Temp Pulse Resp BP BP Pulse Ox 02/23/20 21:57 85 18 152/82 H 97 02/23/20 21:43 87 154/78 H 96 02/23/20 21:33 89 149/72 H 96 02/23/20 21:23 84 138/84 96 02/23/20 21:18 81 150/79 H 97 02/23/20 21:13 85 138/72 97 02/23/20 21:08 80 143/76 H 97 02/23/20 21:03 83 147/66 H 99 02/23/20 20:58 76 156/74 H 98 02/23/20 20:35 79 17 132/88 96 02/23/20 20:31 142/79 H 02/23/20 20:26 141/82 H 02/23/20 20:21 191/91 H 02/23/20 19:48 97.1 F 93 20 190/96 H 100 - My Orders Last 24 Hours: My Active Orders 02/23/20 19:53 Cardiac Monitoring [RC] . DIRECTED Pulse Oximetry [RC] ASDIRECTED Sodium Chloride 0.9% [Saline Flush] 10 ml FLUSH ASDIRECTED PRN Sodium Chloride 0.9% [Saline Flush] 2.5 ml FLUSH ASDIRECTED PRN Saline Lock Insert [OM.PC] Stat 02/23/20 19:54 EKG Documentation Completion [RC] STAT 02/23/20 21:33 CORONAVIRUS COVID-19 PCR PHL Stat - Assessment/Plan Last 24 Hours: My Active Orders 02/23/20 19:53 Cardiac Monitoring [RC] . DIRECTED Pulse Oximetry [RC] ASDIRECTED Sodium Chloride 0.9% [Saline Flush] 10 ml FLUSH ASDIRECTED PRN Sodium Chloride 0.9% [Saline Flush] 2.5 ml FLUSH ASDIRECTED PRN Saline Lock Insert [OM.PC] Stat 02/23/20 19:54 EKG Documentation Completion [RC] STAT 02/23/20 21:33 CORONAVIRUS COVID-19 PCR PHL Stat
[2020-02-23] MEDS: Nitroglycerin 0.4 MG Tab.SL SL PRN ×3 (20:21→20:31)
--- NOTE | 2020-02-23 20:28 | CR ---
Indication: Chest pain. Technique: AP portable view of the chest. Comparison: February 17, 2019. Findings: A left-sided AICD is identified. The right hemidiaphragm is mildly elevated. The lungs are clear. No infiltrate, pleural effusion, or pneumothorax is identified. Impression: No acute cardiopulmonary process. Dictated by Shelly Mcclendon MD @ Feb 23 2020 8:26PM Signed by Dr. Shelly Mcclendon @ Feb 23 2020 8:27PM
[2020-02-23 20:29] LABS: BLOOD UREA NITROGEN,BUN 9 mg/dL (7.0-18.0); CARBON DIOXIDE,CO2 28.6 mmol/L (21.0-32.0); CHLORIDE,CL 101 mmol/L (98-107); GLUCOSE RANDOM 130 mg/dL (74-106); POTASSIUM,K 3.4 mmol/L (3.5-5.1); SODIUM,NA 141 mmol/L (136-145)
[2020-02-23] MEDS ORDERED: Morphine 4 MG/ML Syringe IVPUSH ONE (20:38)
[2020-02-23] MEDS ORDERED: Iopamidol 755 MG/ML 500 ML Multipack Bottle IVPUSH STA (21:06)
[2020-02-23] MEDS ORDERED: Ondansetron 4 MG/2 ML SDV IVPUSH ONE (21:12)
[2020-02-23] MEDS ORDERED: Nitroglycerin 2% Oint 1 GM UD Packet TOP ONE (22:01)
--- NOTE | 2020-02-23 22:28 | CT ---
INDICATION: Chest pain. CT CHEST, ABDOMEN, AND PELVIS WITH CONTRAST TECHNIQUE: Multidetector CT angiogram imaging was performed through the chest, abdomen, and pelvis following intravenous contrast administration using 100 mL Isovue 370. Coronal and sagittal reconstructions were generated. COMPARISON: None. FINDINGS: Lungs and airways: Mild subsegmental atelectasis or linear scarring at the left lung base. No confluent infiltrates, suspicious nodules, or masses. Central airways are patent. Pleura and pleural spaces: No pleural effusions or pneumothorax. Heart and mediastinum: Normal heart size. No significant pericardial effusion. Cardiac pacemaker. Small subcentimeter hypodense nodule in the left thyroid lobe. No pathologically enlarged mediastinal lymph nodes. Vascular structures: No filling defects in the pulmonary arterial tree to suggest pulmonary emboli. Minimal coronary artery calcifications. Normal caliber thoracic and abdominal aorta without evidence of dissection. Minimal atherosclerotic calcifications of the abdominal aorta. Slight ectasia of the celiac trunk. Chest wall and axillae: No mass or axillary lymphadenopathy. Liver and spleen: Diffuse fatty infiltration of the liver. No focal liver lesion identified. Unremarkable spleen. Gallbladder and bile ducts: Status post cholecystectomy. No biliary dilation identified. Pancreas, adrenals, and retroperitoneum: No pancreatic mass identified. Slight thickening of both adrenals without discrete mass. No pathologically enlarged lymph nodes identified in the abdomen or pelvis. Kidneys, ureters, and urinary bladder: No renal masses or hydronephrosis. No bladder mass or definite wall thickening. Gastrointestinal tract, peritoneum, and abdominal wall: Normal caliber bowel without wall thickening. Normal appendix. No free air, abscess, or significant free fluid. Very small fat-containing umbilical hernia. Reproductive organs: Status post hysterectomy. No pelvic masses. Bones: Mild multilevel spondylosis. IMPRESSION: 1. No acute intrathoracic or intraabdominal abnormality identified. No evidence of aortic dissection or pulmonary emboli. No cause for the patient`s chest pain is evident. 2. Nonacute findings as detailed above. BECKY WEBB MD [facility] Dictated by Meet Webb MD @ 02/23/2020 10:24:52 PM Dictated by: Meet Webb MD @ 02/23/2020 22:26:40 (Electronically Signed)
[2020-02-23 23:25] VITALS: BP 135/87; PULSE 79
--- NOTE | 2020-02-27 09:04 | PCM.SN.2 ---
- Free Text/Narrative Note: Patient's state coronavirus swab was found to be positive. On review of the chart, the patient's rapid test here at [facility] was negative. I contacted the patient at [phone] and informed her of the results. I did discuss with her that she needed to quarantine for approximately 10 days and that she needed to monitor her symptoms including fever, pulse oximetry, and shortness of breath. She was informed to return to the emergency department if she has worsening symptoms. She stated at this time she was asymptomatic.
== END 2020-02-23 23:49 | disposition other institution (70) ==
LOC: MW.ED 19:43
DX: R07.2 Precordial pain (principal); I10 Essential (primary) hypertension; K21.9 Gastro-esophageal reflux disease without esophagitis; E11.9 Type 2 diabetes mellitus without complications; Z88.0 Allergy status to penicillin; Z79.899 Other long term (current) drug therapy; Z20.828 Contact with and (suspected) exposure to other viral communicable diseases
CPT/HCPCS: 36415; 71045; 71275; 72191; 74175; 80053; 82728; 84484; 85025; 85379; 85610; 86140; 87635; 93005; 96374; 96375; 99285; A9270; J2270; J2405; Q9967; 93010; U0002